=== PATIENT | male | born 1935 | race Hispanic/Latino ===

== ENCOUNTER 2016-12-05 10:25 | Inpatient (IN) | payer MEDICARE ==
[2016-12-05] MEDS ORDERED: MORPHINE IV ONE (11:50)
[2016-12-05] MEDS ORDERED: ZOFRAN IV ONE (11:50)
[2016-12-05] MEDS ORDERED: NACL 0.9% 250ML 250 ML IV ONE (11:51)
--- NOTE | 2016-12-05 11:52 | Emergency Department Report ---
<LOGAN ALBRECHT - Last Filed: 12/05/16 14:45> ED General Adult HPI - General Chief complaint: Abdominal Pain Stated complaint: ABD PAIN/DIARRHEA Time Seen by Provider: 12/05/16 11:35 Source: patient, EMS (ems notes not available at time of chart dictation), RN notes reviewed Mode of arrival: Stretcher Limitations: No Limitations - History of Present Illness Initial comments: Primary care Dr.: Alfie Pain Specialist: Dr Tyshawn Reed Past medical history: Spinal stenosis, hypertension, high cholesterol, chronic pain This is an 81-year-old male. He is previously unknown to me. He is brought to the hospital by EMS. The patient has a primary complaint of suprapubic abdominal pain, inability to void. Symptoms started last night. They're constant. Patient also reports feeling constipated, and reports intermittent diarrhea which is leaking out of his rectum. There is no extremity weakness. There is no extremity numbness. There is no saddle anesthesia. The patient reports chronic pain to the plantar aspect of his feet, which are not new, worsening or different. The patient's abdominal pain was partially resolved by placement of a Banda catheter which was done by myself using typical sterile technique. -: Gradual Location: abdomen, pelvis Quality: aching Consistency: constant Improves with: other (placement of banda) Worsens with: other (palpation) Associated Symptoms: malaise, other (constipation, urinary retention, diarrhea) - Related Data Home Medications Medication Instructions Recorded Confirmed Last Taken Pregabalin [Lyrica] 50 mg PO DAILY 12/05/16 12/05/16 Unknown amLODIPine [Norvasc] 5 mg PO DAILY 12/05/16 12/05/16 Unknown Previous Rx's Medication Instructions Recorded Last Taken Type Ondansetron [Zofran Odt] 4 mg PO QID PRN #20 tab.rapdis 12/05/16 Unknown Rx Polyethylene Glycol 3350 [Miralax 17 gm PO QDAY #30 packet 12/05/16 Unknown Rx 3350] Allergies Allergy/AdvReac Type Severity Reaction Status Date / Time No Known Allergies Allergy Unverified 12/05/16 11:17 ED Review of Systems ROS: Stated complaint: ABD PAIN/DIARRHEA Other details as noted in HPI Constitutional: denies: malaise Eyes: denies: vision change ENT: denies: epistaxis Respiratory: denies: cough Cardiovascular: denies: chest pain Gastrointestinal: abdominal pain, diarrhea, constipation Genitourinary: other (retention) Musculoskeletal: back pain (chronic) Skin: denies: lesions Neurological: denies: numbness, paresthesias Psychiatric: anxiety ED Past Medical Hx - Past Medical History Previous Medical History?: Yes Hx Hypertension: Yes Additional medical history: high cholesterol. spinal stenosis - Social History Smoking Status: Former Smoker Substance Use Type: None - Medications Home Medications: Home Medications Medication Instructions Recorded Confirmed Last Taken Type Ondansetron [Zofran Odt] 4 mg PO QID PRN #20 tab.rapdis 12/05/16 Unknown Rx Polyethylene Glycol 3350 [Miralax 17 gm PO QDAY #30 packet 12/05/16 Unknown Rx 3350] Pregabalin [Lyrica] 50 mg PO DAILY 12/05/16 12/05/16 Unknown History amLODIPine [Norvasc] 5 mg PO DAILY 12/05/16 12/05/16 Unknown History ED Physical Exam - General Limitations: Physical Limitation General appearance: alert, in distress - Head Head exam: Present: atraumatic, normocephalic - Eye Eye exam: Present: normal appearance, EOMI. Absent: nystagmus - ENT ENT exam: Present: normal exam, normal orophraynx, mucous membranes moist, normal external ear exam - Neck Neck exam: Present: normal inspection, full ROM. Absent: tenderness, meningismus - Respiratory Respiratory exam: Present: normal lung sounds bilaterally. Absent: respiratory distress, wheezes, rales, rhonchi, stridor, decreased breath sounds - Cardiovascular Cardiovascular Exam: Present: normal rhythm, bradycardia, normal heart sounds. Absent: systolic murmur, diastolic murmur, rubs, gallop - GI/Abdominal GI/Abdominal exam: Present: soft, tenderness, normal bowel sounds, other ( suprapubic abdominal tenderness. There is no rebound, guarding or peritoneal signs). Absent: guarding, rebound, rigid, pulsatile mass - Rectal Rectal exam: Present: normal inspection, normal rectal tone, heme (+) stool, fecal impaction, other (there is brown stool noted in the rectal vault. There is no gross blood. Trace guaiac positive. Large fecal load noted in the rectal vault. Good rectal tone. saddle sensation intact.) - exam: Present: normal inspection. Absent: testicular tenderness External exam: Present: normal external exam - Extremities Exam Extremities exam: Present: normal inspection, full ROM, normal capillary refill , pedal edema. Absent: calf tenderness, other - Back Exam Back exam: Present: normal inspection, full ROM. Absent: tenderness, CVA tenderness (R), CVA tenderness (L), muscle spasm, paraspinal tenderness - Neurological Exam Neurological exam: Present: alert, oriented X3, other (Extraocular movements intact. Tongue midline. No facial droop. Facial sensation intact to light touch in the V1, V2, V3 distribution bilaterally. 5 and 5 strength in 4 extremities.. Sensation is intact to light touch in 4 extremities.). Absent: motor sensory deficit - Psychiatric Psychiatric exam: Present: anxious - Skin Skin exam: Present: warm, dry, intact, normal color. Absent: rash ED Course Vital Signs 12/05/16 12/05/16 12/05/16 11:13 12:30 12:56 Temperature 99 F Pulse Rate 55 L 83 Respiratory 18 16 16 Rate Blood Pressure 143/79 Blood Pressure 139/55 [Right] O2 Sat by Pulse 100 96 Oximetry 12/05/16 12/05/16 12/05/16 13:26 14:06 16:00 Temperature Pulse Rate 61 56 L Respiratory 16 16 16 Rate Blood Pressure Blood Pressure 144/58 134/62 [Right] O2 Sat by Pulse 96 98 Oximetry 12/05/16 18:04 Temperature Pulse Rate 74 Respiratory 16 Rate Blood Pressure Blood Pressure 162/62 [Right] O2 Sat by Pulse 98 Oximetry - Reevaluation(s) Reevaluation #1: 12/05/16 14:38 differential diagnosis: Urinary retention, constipation, constipation secondary to chronic narcotic use, fecal impaction assessment and plan: 81-year-old male here with urinary retention, constipation. Patient has a history of chronic narcotic use. Using appropriate sterile technique, A Banda catheter is placed by myself with immediate release of 900 mL of clear yellow urine. Patient reported almost complete relief of pain. Laboratory studies were unremarkable, a CT scan of the abdomen and pelvis demonstrated moderate fecal retention in the colon and rectum. The patient is given a fleets enema. The patient is tolerating liquid feeds. He has appropriate rectal tone, and sensation, strength are intact in the bilateral upper and lower extremities. Patient has trace guaiac-positive stool, low-grade temperature of 99.9, guaiac positive stool most likely secondary to constipation and epithelial sloughing. There is no gross blood on rectal examination, and on reexamination the patient appears to be quite comfortable. The patient can follow up with outpatient gastroenterology for his guaiac positive stool, he can follow up with urology for his urinary retention and indwelling Banda catheter, and he is instructed to follow-up with his pain specialist to taper off/discontinue his narcotic therapy. He will be started empirically on MiraLAX. At this point in time, I see no indication for medical admission to the hospital. The patient will be discharged. Return precautions are reviewed. 12/05/16 14:45 - Procedure Description Procedures done: Using typical sterile technique, the penis is prepped with standard Betadine using sterile gloves. A 16 Setswana Banda catheter is placed by myself with 1 attempt with no difficulty. Immediate release of clear yellow urine is obtained. 900 mL of urine have drained so far. The patient tolerated the procedure well. ED Medical Decision Making - Lab Data Result diagrams: 12/05/16 12:28 12/05/16 12:28 Vital Signs 12/05/16 12/05/16 12/05/16 11:13 12:30 12:56 Temperature 99 F Pulse Rate 55 L 83 Respiratory 18 16 16 Rate Blood Pressure 143/79 Blood Pressure 139/55 [Right] O2 Sat by Pulse 100 96 Oximetry 12/05/16 14:06 Temperature Pulse Rate 61 Respiratory 16 Rate Blood Pressure Blood Pressure 144/58 [Right] O2 Sat by Pulse 96 Oximetry Lab Results 12/05/16 12/05/16 12/05/16 Range/Units 12:28 12:28 13:09 WBC 8.4 (4.5-11.0) K/mm3 RBC 5.26 H (3.65-5.03) M/mm3 Hgb 15.8 H (11.8-15.2) gm/dl Hct 46.4 H (35.5-45.6) % MCV 88 (84-94) fl MCH 30 (28-32) pg MCHC 34 (32-34) % RDW 13.8 (13.2-15.2) % Plt Count 180 (140-440) K/mm3 Sodium 135 L (137-145) mmol/L Potassium 4.3 (3.6-5.0) mmol/L Chloride 97.3 L (98-107) mmol/L Carbon Dioxide 21 L (22-30) mmol/L Anion Gap 21 mmol/L BUN 10 (9-20) mg/dL Creatinine 0.9 (0.8-1.5) mg/dL Estimated GFR > 60 ml/min BUN/Creatinine Ratio 11.11 % Glucose 102 H (75-100) mg/dL Calcium 9.5 (8.4-10.2) mg/dL Magnesium 1.8 (1.7-2.3) mg/dL Urine Color Yellow (Yellow) Urine Turbidity Clear (Clear) Urine pH 8.0 H (5.0-7.0) Ur Specific Andrews 1.012 (1.003-1.030) Urine Protein <15 mg/dl (Negative) mg/dL Urine Glucose (UA) Neg (Negative) mg/dL Urine Ketones Tr (Negative) mg/dL Urine Blood Sm (Negative) Urine Nitrite Neg (Negative) Urine Bilirubin Neg (Negative) Urine Urobilinogen 2.0 (<2.0) mg/dL Ur Leukocyte Esterase Neg (Negative) Urine WBC (Auto) 1.0 (0.0-6.0) /HPF Urine RBC (Auto) 6.0 (0.0-6.0) /HPF - Radiology Data Radiology results: report reviewed, image reviewed Noncontrast CT scan of the abdomen and pelvis demonstrates no acute process, bilateral nephrolithiasis is noted, nonobstructing. Mild fecal retention is noted. There is no evidence of bowel obstruction or focal inflammation. Critical care attestation.: If time is entered above; I have spent that time in minutes in the direct care of this critically ill patient, excluding procedure time. ED Disposition Clinical Impression: Abdominal pain Disposition: OP ADMITTED IP TO THIS HOSP Is pt being admited?: No Does the pt Need Aspirin: No Condition: Fair Instructions: Constipation (ED), Urinary Retention in Men (ED), High Fiber Diet (ED) Additional Instructions: Banda catheter should remain in place. Follow up with your primary care doctor or urology specialist within the next 5-7 days for outpatient trial of void. Do not attempt to remove the Banda catheter on your own, this could severely damaged the bladder, prostate, urethra. Laboratory studies were unremarkable. Laboratory studies did indicate trace blood in the stool. This is most likely secondary to constipation. Follow up for this with either your primary care doctor or gastroenterology specialist. Dr. Lynn is a local gastroenterology specialist. Not following up in a timely fashion with either of the recommended physicians for the blood in the stool may result in an undiagnosed tumor/cancer/malignancy. I recommend that you follow up with your pain specialist within the next week to 10 days to have an evaluation for a tapering/discontinuation of the narcotic medications which you are taking. Most likely, the narcotic medications made you constipated which in turn caused urinary retention. Take the constipation medication as directed. Drink 6-8 cups of water a day, eat plenty of fiber, fruits, vegetables. Take the MiraLAX as directed. Dr. Martinez is a local urology specialist. Return to the ER right away with new pain, worsened pain, migration of pain, fevers or chills, intractable nausea or vomiting, inability to tolerate liquid feeds. Prescriptions: Ondansetron [Zofran Odt] 4 mg PO QID PRN #20 tab.rapdis PRN Reason: Nausea Polyethylene Glycol 3350 [Miralax 3350] 17 gm PO QDAY #30 packet Referrals: ARNALDO BAKER MD [Primary Care Provider] - 3-5 Days ZAY LINDSAY MD [Staff Physician] - 3-5 Days PASHA REED MD [Staff Physician] - 3-5 Days MAYRA LYNN MD [Staff Physician] - 3-5 Days GURINDER COLLINS MD [Staff Physician] - 3-5 Days <KENAN DONALDSON. - Last Filed: 12/05/16 18:56> ED Medical Decision Making - Lab Data Result diagrams: 12/05/16 12:28 12/05/16 12:28 - Medical Decision Making I was approach at 1800 by the nurse that the patient is unable to go home, still complaining of abdominal pain, attempts for manual decompression were unsuccessful. Discuss case with Dr. Santiago and agree with plan for admission for intractable abdominal pain. ED Disposition Is pt being admited?: Yes Time of Disposition: 18:56
--- NOTE | 2016-12-05 12:40 | Cat Scan Report ---
CT OF THE ABDOMEN AND PELVIS WITHOUT CONTRAST HISTORY: Abdominal pain. TECHNIQUE: Helical CT without contrast. Sagittal and coronal reformatted images. FINDINGS: Scattered punctate bilateral renal stones are identified. No ureteral stones or hydronephrosis. The bladder is empty and contains a Vergara catheter. No obvious abnormality. There is moderate fecal retention in the colon and rectum. No evidence for bowel obstruction or focal inflammation. The appendix is not confidently identified. The liver, biliary system, pancreas, spleen, and adrenal glands are unremarkable. There are moderate diffuse aortic calcifications but no aneurysm. No ascites, bulky adenopathy or inflammatory changes. The lung bases are clear. Normal heart size. No suspicious bony lesion. Severe thoracolumbar spondylosis is noted. IMPRESSION: No acute process. Bilateral nephrolithiasis, nonobstructing. Mild fecal retention. Advanced thoracolumbar spondylosis.
[2016-12-05 13:02] LABS: Anion Gap 21 mmol/L; BUN/Creatinine Ratio 11.11; Blood Urea Nitrogen 10 mg/dL (9-20); Calcium 9.5 mg/dL (8.4-10.2); Carbon Dioxide 21 mmol/L (22-30); Chloride 97.3 mmol/L (98-107); Glucose 102 mg/dL (75-100); Magnesium 1.8 mg/dL (1.7-2.3); Potassium 4.3 mmol/L (3.6-5.0); Sodium 135 mmol/L (137-145)
[2016-12-05 13:19] LABS: Hematocrit 46.4 % (35.5-45.6); Hemoglobin 15.8 gm/dl (11.8-15.2); Mean Corpuscular HGB Conc 34 % (32-34); Mean Corpuscular Hemoglobin 30 pg (28-32); Mean Corpuscular Volume 88 fl (84-94); Red Blood Count 5.26 M/mm3 (3.65-5.03); Red Cell Distribution Width 13.8 % (13.2-15.2); White Blood Count 8.4 K/mm3 (4.5-11.0)
[2016-12-05 13:22] LABS: Platelet Count 180 K/mm3 (140-440)
[2016-12-05 13:33] LABS: Bilirubin,Urine NEG (Negative); Blood,Urine SM (Negative); Ketones,Urine TR mg/dL (Negative); Leukocyte Esterase,Urine NEG (Negative); Nitrite,Urine NEG (Negative); Protein,Urine <15 mg/dL mg/dL (Negative)
[2016-12-05] MEDS ORDERED: FLEET PR ONE ×2 (14:04→14:13)
--- NOTE | 2016-12-05 19:19 | Admit Criteria Form ---
Admission Criteria Documentation: ABDOMINAL PAIN Clinical Indications for Admission to Inpatient Care (Place 'X' for any and all applicable criteria): Admission is indicated for ANY ONE of the following(1)(2)(3)(4)(5): [X ]I. Inpatient admission required rather than observation care (Also use Abdominal Pain: Observation Care, as appropriate) because of ANY ONE of the following: [ ]a) Severe pain requiring acute inpatient management [ ]b) Identification of etiology/finding that requires inpatient care (eg, aortic dissection, free air) [ ]c) Absent bowel sounds with complete ileus(6) [ ]d) Suspected toxic megacolon [ ]e) Severe electrolyte abnormalities requiring inpatient care [ ]f) High fever or infection requiring inpatient admission as indicated by ANY ONE of following(7)(8): [ ] i) Appropriate outpatient or observational care antimicrobial treatment unavailable, not effective, or not feasible [ ] ii) Documented bacteremia [ ] iii) Temperature > 104.9 degrees F (oral) [ ] iv) T >103.1 F (oral) or < 96.8 F(rectal) that does not respond to all emergency treatment measures [ ]g) Signs of intestinal obstruction [B] [ ]h) Hemodynamic instability [ ]i) IV fluid to replace significant ongoing losses (greater than 3 L/m2 per day) (12)(13) [ ]j) Percutaneous or open drainage (eg, abscess, biliary tract ) procedures [ ]k) Parenteral nutrition regimen that must be implemented on inpatient basis [X ]l) Other condition,treatment or monitoring requiring inpatient admission. [ ]II. Peritoneal signs present [ ]III. Surgery needed that cannot be performed on an ambulatory basis. [ ]IV. Evaluation requires patient to not eat or drink for extended period ( eg, more than 24 hours). [ ]V. Contraindications and/or Inappropriate clinical situations for Observational Care in patients with abdominal pain, when ANY ONE of the following is required: [ ]a) Thorough evaluation is required to prevent catastrophic events due to delays in diagnosing (e.g.Mesenteric ischemia) 1,3 [ ]b) Patient with severe pathology or with chronic symptoms unlikely to improve in the ED stay (3) [X ]. General contraindications and/or Inappropriate clinical situations for Observational Care in patients with abdominal pain, when ANY ONE of the following is required: [X ]a) Prediction of prolongation of LOS based on ANY ONE of the following may be considered as a contraindication for observational care 2, 3, 4, 5, 6, 7, 8, 9, 10, 11 [ X]i) Age > 65 yrs. [ ]ii) Patient arriving by ambulance [ ]iii) Patient with high acuity [ ]iv) Patient requiring vital sign monitoring [ ]v) Patient on IV medication [ ]b) Systolic blood pressures 180mmHg 3,12 [ ]c) Patient with altered mental status including delirium and other alteration of consciousness, (3) [ ]d) Patient whose discharge disposition will be to a intermediate home or rehabilitation home should not be managed in Emergency Department Observation Unit. CMS rule requires 3 days hospital stay before such placement.3,13 [ ]e) Patient with failure to thrive due to broad array of etiologies 3,16,17 [ ]f) Inability to ambulate 3,14 Extended stay beyond goal length of stay may be needed for(2)(3): [ ]a) Persistent abdominal pain with suspected intra-abdominal process [ ]b) Diagnosed condition requiring continued stay (e.g., pancreatitis, complicated diverticulitis) [ ]c) Surgery (e.g., colectomy) The original [email or web address] content created by [facility] has been revised. The portions of the content which have been revised are identified through the use of italic text or in bold, and [facility] has neither reviewed nor approved the modified material.All other unmodified content is copyright [facility]. Please see references footnoted in the original [facility] edition 2016 Admission Criteria Met: Yes
--- NOTE | 2016-12-05 20:33 | Event Note ---
Date: 12/05/16
[2016-12-05] MEDS ORDERED: DULCOLAX PR PRN (20:35)
[2016-12-05] MEDS ORDERED: MILK OF MAGNESIA PO PRN (20:35)
[2016-12-05] MEDS ORDERED: CEPHULAC PR SCH (21:00)
[2016-12-05] MEDS ORDERED: LOVENOX SUB-Q ONE (23:17)
[2016-12-05] MEDS ORDERED: NORVASC ONE (23:18)
[2016-12-05] MEDS: NORVASC PO SCH (23:38)
[2016-12-05] MEDS: LOVENOX SUB-Q SCH (23:39)
[2016-12-06] MEDS: CEPHULAC PO SCH ×2 (00:18→09:57)
[2016-12-06] MEDS: TORADOL IV PRN ×3 (00:18→20:49)
[2016-12-06] MEDS: LYRICA PO SCH ×2 (00:26→09:56)
[2016-12-06] MEDS: D5NS 1,000 ML IV SCH ×2 (00:31→12:24)
[2016-12-06 02:51] LABS: Basophils % (Auto) 0.3 % (0.0-1.8); Eosinophils % (Auto) 0.3 % (0.0-4.3); Hematocrit 45.2 % (35.5-45.6); Hemoglobin 15.1 gm/dl (11.8-15.2); Mean Corpuscular HGB Conc 33 % (32-34); Mean Corpuscular Hemoglobin 30 pg (28-32); Mean Corpuscular Volume 89 fl (84-94); Platelet Count 162 K/mm3 (140-440); Red Blood Count 5.08 M/mm3 (3.65-5.03); Red Cell Distribution Width 13.6 % (13.2-15.2); White Blood Count 10.3 K/mm3 (4.5-11.0)
[2016-12-06 03:11] LABS: Alanine Aminotransferase 6 units/L (7-56); Albumin 3.6 g/dL (3.9-5); Albumin/Globulin Ratio 1.3 %; Alkaline Phosphatase 54 units/L (35-129); Anion Gap 18 mmol/L; BUN/Creatinine Ratio 12.22; Bilirubin,Total 1.8 mg/dL (0.1-1.2); Blood Urea Nitrogen 11 mg/dL (9-20); Calcium 8.3 mg/dL (8.4-10.2); Carbon Dioxide 22 mmol/L (22-30); Glucose 146 mg/dL (75-100); Potassium 4.3 mmol/L (3.6-5.0); Sodium 133 mmol/L (137-145); Total Protein 6.4 g/dL (6.3-8.2)
--- NOTE | 2016-12-06 03:47 | History and Physical Report ---
CHIEF COMPLAINT: Abdominal pain. HISTORY OF PRESENT ILLNESS: This 81-year-old male brought in for acute abdominal pain since last night. Pain is about 8 on a scale of 1-10, constant, more periumbilical. Also, the patient has severe constipation and intermittent loose stools, secondary to leakage. No weakness. No extremity numbness. Saddle anesthesia. Chronic pain in both feet secondary to peripheral neuropathy. The patient follows with pain specialist, Dr. Ac and primary care is Dr. Avalos. CURRENT MEDICATIONS: Amlodipine and pregabalin. PAST MEDICAL HISTORY: Significant for hypertension, high cholesterol, spinal stenosis with severe pain in both the feet. SOCIAL HISTORY: Former smoker, no substance abuse. PAST SURGICAL HISTORY: Unknown. FAMILY HISTORY: Significant for hypertension. CURRENT MEDICATIONS: Norvasc 5 mg daily, Lyrica 50 mg daily, MiraLax 17 g p.o. daily, and Zofran 4 mg p.o. q.i.d. p.r.n. REVIEW OF SYSTEMS: CONSTITUTIONAL: No fever, no chills. No weight loss, no weight gain. HEENT: Unremarkable. No sore throat. No postnasal drip. CARDIOVASCULAR AND RESPIRATORY SYSTEM: No shortness of breath, no chest pain, no palpitations. GASTROINTESTINAL: Severe abdominal pain, constipation, and periumbilical pain present. Pain is about 8 on a scale of 1-10. Denies yellow vomitus. Occasional leakage of feces secondary to constipation present. GENITOURINARY SYSTEM: No dysuria, no flank pain. MUSCULOSKELETAL SYSTEM: No joint pains. HOSPITAL INSURANCE REPRESENTATIVE: No syncope, no seizures. No focal deficits. SKIN: No rashes. HEMATOLOGIC/LYMPHATIC: No bruising, etc. PSYCHIATRIC: No depression. 14-point review of system were done. PHYSICAL EXAMINATION: VITAL SIGNS: On examination, elderly male in slight distress secondary to pain. Blood pressure is 170/59 and temperature is 98, pulse is 70, respirations 16, and sats 98%. HEENT: Unremarkable. Pupils equal and reactive. NECK: Supple, no lymphadenopathy, no thyromegaly. LUNGS: Clear to auscultation and percussion. Good air entry. CARDIOVASCULAR: S1, S2 heard. No gallop, no murmur, no rub. Apical impulse in left fifth intercostal space in midclavicular line. ABDOMEN: Tenderness present in the periumbilical region. RECTAL: Exam shows fecal impaction. SKIN: Normal. CENTRAL NERVOUS SYSTEM: Alert and oriented x4. Nonfocal exam. LABORATORY DATA: White count was 8400, H and H is 15.8 and 46.4, platelet count is 180,000. Sodium is 135, potassium is 4.3, chloride is 97.3, bicarbonate is 21, BUN and creatinine is 10 and 0.9, glucose is 102, calcium is 9.5, magnesium is 1.8. Urine shows pH of 8.0, urine specific gravity 1.012. Abdominal CAT scan shows mild fecal retention. No cervical or lumbar spondylosis. ED COURSE: Multiple attempts were done to relieve the constipation. The patient has severe pain and was skeptical about going home. The patient was discharged by , but because of the nursing concern and the second ER physician's concerns, the patient to be admitted for acute abdominal pain and severe fecal impaction. ASSESSMENT AND PLAN: 1. Acute abdominal pain secondary to fecal impaction. The patient had enemas and Fleet enema x2 with minimal fecal retention. Soapsuds enema was also administered with no relief. Digital extraction was performed. The patient; however, continues to moan in pain and says that he could not go home like this. Hence decided to admit the patient for further administration of lactulose p.o. versus enema if there are no results to give Gastrografin enema. Gastrografin enema not ordered at this point. 2. Hypertension, continue amlodipine. 3. Chronic pain, the patient started on IV Toradol, no narcotics initiated because of the constipation. 4. Deep venous thrombosis prophylaxis, Lovenox 40 mg subcutaneous daily. JOB# [id number] KEM/LAYTON
[2016-12-06] MEDS: ZOFRAN IV PRN ×2 (08:06→17:11)
[2016-12-06] MEDS: NORVASC PO SCH (09:55)
[2016-12-06] MEDS: TYLENOL PO PRN (12:45)
[2016-12-06] MEDS: FLOMAX PO SCH (16:08)
--- NOTE | 2016-12-06 17:30 | Progress Note ---
Assessment and Plan Assessment and plan: Patient's an 81-year-old male with history of severe spinal stenosis, hypertension, high cholesterol, chronic pain secondary to spinal stenosis who presented to the hospital complaining of suprapubic abdominal pain and inability to void. He required a Vergara catheter insertion. Was also found to be severely constipated for which he received lactulose. No saddle anesthesia was noted no lower extremity numbness was felt. Patient did have bowel movement yesterday with Vergara catheter subsequently discontinued this morning still awaiting for patient to void. 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 Vergara catheter was discontinued this morning awaiting to see if patient will void on his own. No other adverse events reported by nursing staff Hospitalist Physical - Physical exam Narrative exam: VITAL SIGNS: Reviewed. GENERAL: The patient appeared well nourished and normally developed. Vital signs as documented. HEAD: No signs of head trauma. EYES: Pupils are equal. Extraocular motions intact. EARS: Hearing grossly intact. MOUTH: Oropharynx is normal. NECK: No adenopathy, no JVD. CHEST: Chest with clear breath sounds bilaterally. No wheezes, rales, or rhonchi. CARDIAC: Regular rate and rhythm. S1 and S2, without murmurs, gallops, or rubs. VASCULAR: No Edema. Peripheral pulses normal and equal in all extremities. ABDOMEN: Soft, without detectable tenderness. No sign of distention. No rebound or guarding, and no masses palpated. Bowel Sounds normal. MUSCULOSKELETAL: Good range of motion of all major joints. Extremities without clubbing, cyanosis or edema. NEUROLOGIC EXAM: Alert and oriented x 3. No focal sensory or strength deficits. Speech normal. Follows commands. PSYCHIATRIC: Mood normal. SKIN: No rash or lesions. - Constitutional Vitals: Temp Pulse Resp BP Pulse Ox 98.6 F 55 L 18 127/55 100 12/06/16 08:00 12/06/16 09:55 12/06/16 08:00 12/06/16 09:55 12/06/16 08:00 Results - Labs CBC & Chem 7: 12/06/16 02:25 12/06/16 02:25 Labs: Laboratory Last Values WBC 10.3 K/mm3 (4.5-11.0) 12/06/16 02:25 RBC 5.08 M/mm3 (3.65-5.03) H 12/06/16 02:25 Hgb 15.1 gm/dl (11.8-15.2) 12/06/16 02:25 Hct 45.2 % (35.5-45.6) 12/06/16 02:25 MCV 89 fl (84-94) 12/06/16 02:25 MCH 30 pg (28-32) 12/06/16 02:25 MCHC 33 % (32-34) 12/06/16 02:25 RDW 13.6 % (13.2-15.2) 12/06/16 02:25 Plt Count 162 K/mm3 (140-440) 12/06/16 02:25 Lymph % (Auto) 9.6 % (13.4-35.0) L 12/06/16 02:25 [place] % (Auto) 9.3 % (0.0-7.3) H 12/06/16 02:25 Eos % (Auto) 0.3 % (0.0-4.3) 12/06/16 02:25 Baso % (Auto) 0.3 % (0.0-1.8) 12/06/16 02:25 Lymph # 1.0 K/mm3 (1.2-5.4) L 12/06/16 02:25 [place] # 1.0 K/mm3 (0.0-0.8) H 12/06/16 02:25 Eos # 0.0 K/mm3 (0.0-0.4) 12/06/16 02:25 Baso # 0.0 K/mm3 (0.0-0.1) 12/06/16 02:25 Seg Neutrophils % 80.5 % (40.0-70.0) H 12/06/16 02:25 Seg Neutrophils # 8.3 K/mm3 (1.8-7.7) H 12/06/16 02:25 Sodium 133 mmol/L (137-145) L 12/06/16 02:25 Potassium 4.3 mmol/L (3.6-5.0) 12/06/16 02:25 Chloride 97.0 mmol/L (98-107) L 12/06/16 02:25 Carbon Dioxide 22 mmol/L (22-30) 12/06/16 02:25 Anion Gap 18 mmol/L 12/06/16 02:25 BUN 11 mg/dL (9-20) 12/06/16 02:25 Creatinine 0.9 mg/dL (0.8-1.5) 12/06/16 02:25 Estimated GFR > 60 ml/min 12/06/16 02:25 BUN/Creatinine Ratio 12.22 % 12/06/16 02:25 Glucose 146 mg/dL (75-100) H 12/06/16 02:25 Calcium 8.3 mg/dL (8.4-10.2) L 12/06/16 02:25 Magnesium 1.8 mg/dL (1.7-2.3) 12/05/16 12:28 Total Bilirubin 1.8 mg/dL (0.1-1.2) H 12/06/16 02:25 AST 20 units/L (5-40) 12/06/16 02:25 ALT 6 units/L (7-56) L 12/06/16 02:25 Alkaline Phosphatase 54 units/L (35-129) 12/06/16 02:25 Total Protein 6.4 g/dL (6.3-8.2) 12/06/16 02:25 Albumin 3.6 g/dL (3.9-5) L 12/06/16 02:25 Albumin/Globulin Ratio 1.3 % 12/06/16 02:25 Urine Color Yellow (Yellow) 12/05/16 13:09 Urine Turbidity Clear (Clear) 12/05/16 13:09 Urine pH 8.0 (5.0-7.0) H 12/05/16 13:09 Ur Specific [place] 1.012 (1.003-1.030) 12/05/16 13:09 Urine Protein <15 mg/dl mg/dL (Negative) 12/05/16 13:09 Urine Glucose (UA) Neg mg/dL (Negative) 12/05/16 13:09 Urine Ketones Tr mg/dL (Negative) 12/05/16 13:09 Urine Blood Sm (Negative) 12/05/16 13:09 Urine Nitrite Neg (Negative) 12/05/16 13:09 Urine Bilirubin Neg (Negative) 12/05/16 13:09 Urine Urobilinogen 2.0 mg/dL (<2.0) 12/05/16 13:09 Ur Leukocyte Esterase Neg (Negative) 12/05/16 13:09 Urine WBC (Auto) 1.0 /HPF (0.0-6.0) 12/05/16 13:09 Urine RBC (Auto) 6.0 /HPF (0.0-6.0) 12/05/16 13:09 - Imaging and Cardiology CT scan - abdomen: image reviewed (nonobstructive nephrolithiasis, no hydronephrosis)
[2016-12-06] MEDS: LOVENOX SUB-Q SCH (22:45)
[2016-12-07] MEDS: TORADOL IV PRN ×2 (06:13→17:29)
[2016-12-07] MEDS: D5NS 1,000 ML IV SCH ×2 (06:45→09:57)
[2016-12-07] MEDS: ZOFRAN IV PRN (07:51)
[2016-12-07] MEDS: NORVASC PO SCH (09:53)
[2016-12-07] MEDS: FLOMAX PO SCH (09:53)
[2016-12-07] MEDS: LYRICA PO SCH (09:54)
[2016-12-07] MEDS ORDERED: DULCOLAX PR ONE (10:00)
[2016-12-07] MEDS: CEPHULAC PO SCH (10:04)
--- NOTE | 2016-12-07 14:43 | Progress Note ---
Assessment and Plan Assessment and plan: Patient is a 81-year-old man with a history of severe spinal stenosis, hypertension, high cholesterol and chronic pain secondary to spinal stenosis who presented to the hospital complaining of suprapubic abdominal pain and inability to void. He required a Banda catheter insertion. He was also found to be severely constipated for which he received lactulose and digital dis- impaction in ED. No saddle anesthesia was noted and no lower extremity numbness was felt. Patient did have bowel movement yesterday with Banda catheter subsequently discontinued this morning still awaiting for patient to void. He was unable to void and banda catheter was re-inserted. He needs outpatient urology evaluation of his prostate causing both constipation and urinary retention. He was started on Flomax. 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 Plan * Supportive care * Start patient on Flomax * Bladder ultrasound, if no void and will need to reinsert Banda catheter back and obtain urology evaluation * Continue stool softeners * Judicious use of pain control * Physical therapy evaluate and treat * Anticipate discharge soon * Continue home medications New: still with severe constipation, ordered soap suds enema, dulcolax suppository, sitz bath and daily miralax Hospitalist Physical - Constitutional Vitals: Temp Pulse Resp BP Pulse Ox 98.8 F 56 L 18 145/89 95 12/07/16 01:27 12/07/16 09:53 12/07/16 01:27 12/07/16 09:53 12/07/16 01:27 Results - Labs CBC & Chem 7: 12/06/16 02:25 12/06/16 02:25 Labs: Laboratory Last Values WBC 10.3 K/mm3 (4.5-11.0) 12/06/16 02:25 RBC 5.08 M/mm3 (3.65-5.03) H 12/06/16 02:25 Hgb 15.1 gm/dl (11.8-15.2) 12/06/16 02:25 Hct 45.2 % (35.5-45.6) 12/06/16 02:25 MCV 89 fl (84-94) 12/06/16 02:25 MCH 30 pg (28-32) 12/06/16 02:25 MCHC 33 % (32-34) 12/06/16 02:25 RDW 13.6 % (13.2-15.2) 12/06/16 02:25 Plt Count 162 K/mm3 (140-440) 12/06/16 02:25 Lymph % (Auto) 9.6 % (13.4-35.0) L 12/06/16 02:25 [place] % (Auto) 9.3 % (0.0-7.3) H 12/06/16 02:25 Eos % (Auto) 0.3 % (0.0-4.3) 12/06/16 02:25 Baso % (Auto) 0.3 % (0.0-1.8) 12/06/16 02:25 Lymph # 1.0 K/mm3 (1.2-5.4) L 12/06/16 02:25 [place] # 1.0 K/mm3 (0.0-0.8) H 12/06/16 02:25 Eos # 0.0 K/mm3 (0.0-0.4) 12/06/16 02:25 Baso # 0.0 K/mm3 (0.0-0.1) 12/06/16 02:25 Seg Neutrophils % 80.5 % (40.0-70.0) H 12/06/16 02:25 Seg Neutrophils # 8.3 K/mm3 (1.8-7.7) H 12/06/16 02:25 Sodium 133 mmol/L (137-145) L 12/06/16 02:25 Potassium 4.3 mmol/L (3.6-5.0) 12/06/16 02:25 Chloride 97.0 mmol/L (98-107) L 12/06/16 02:25 Carbon Dioxide 22 mmol/L (22-30) 12/06/16 02:25 Anion Gap 18 mmol/L 12/06/16 02:25 BUN 11 mg/dL (9-20) 12/06/16 02:25 Creatinine 0.9 mg/dL (0.8-1.5) 12/06/16 02:25 Estimated GFR > 60 ml/min 12/06/16 02:25 BUN/Creatinine Ratio 12.22 % 12/06/16 02:25 Glucose 146 mg/dL (75-100) H 12/06/16 02:25 Calcium 8.3 mg/dL (8.4-10.2) L 12/06/16 02:25 Magnesium 1.8 mg/dL (1.7-2.3) 12/05/16 12:28 Total Bilirubin 1.8 mg/dL (0.1-1.2) H 12/06/16 02:25 AST 20 units/L (5-40) 12/06/16 02:25 ALT 6 units/L (7-56) L 12/06/16 02:25 Alkaline Phosphatase 54 units/L (35-129) 12/06/16 02:25 Total Protein 6.4 g/dL (6.3-8.2) 12/06/16 02:25 Albumin 3.6 g/dL (3.9-5) L 12/06/16 02:25 Albumin/Globulin Ratio 1.3 % 12/06/16 02:25 Urine Color Yellow (Yellow) 12/05/16 13:09 Urine Turbidity Clear (Clear) 12/05/16 13:09 Urine pH 8.0 (5.0-7.0) H 12/05/16 13:09 Ur Specific [place] 1.012 (1.003-1.030) 12/05/16 13:09 Urine Protein <15 mg/dl mg/dL (Negative) 12/05/16 13:09 Urine Glucose (UA) Neg mg/dL (Negative) 12/05/16 13:09 Urine Ketones Tr mg/dL (Negative) 12/05/16 13:09 Urine Blood Sm (Negative) 12/05/16 13:09 Urine Nitrite Neg (Negative) 12/05/16 13:09 Urine Bilirubin Neg (Negative) 12/05/16 13:09 Urine Urobilinogen 2.0 mg/dL (<2.0) 12/05/16 13:09 Ur Leukocyte Esterase Neg (Negative) 12/05/16 13:09 Urine WBC (Auto) 1.0 /HPF (0.0-6.0) 12/05/16 13:09 Urine RBC (Auto) 6.0 /HPF (0.0-6.0) 12/05/16 13:09
--- NOTE | 2016-12-07 14:45 | Discharge Summary ---
Providers - Providers Date of Admission: 12/05/16 20:35 Date of discharge: 12/08/16 Attending physician: ARNALDO HINES 12/06/16 17:27 Physical Therapy Evaluation and Treat [CONS] Routine Comment: Reason For Exam: DEBILITY Primary care physician: ARNALDO BAKER Hospitalization Condition: Stable Hospital course: Patient is a 81-year-old man with a history of severe spinal stenosis, hypertension, high cholesterol and chronic pain secondary to spinal stenosis who presented to the hospital complaining of suprapubic abdominal pain and inability to void. He required a Banda catheter insertion. He was also found to be severely constipated for which he received lactulose and digital dis- impaction in ED. No saddle anesthesia was noted and no lower extremity numbness was felt. Patient did have bowel movement yesterday with Banda catheter subsequently discontinued this morning still awaiting for patient to void. He was unable to void and banda catheter was re-inserted. He needs outpatient urology evaluation of his prostate causing both constipation and urinary retention. He was started on Flomax. 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 Plan * Supportive care * Start patient on Flomax * Bladder ultrasound, if no void and will need to reinsert Banda catheter back and obtain urology evaluation * Continue stool softeners * Judicious use of pain control * Physical therapy evaluate and treat * Anticipate discharge soon * Continue home medications severe constipation, ordered soap suds enema, dulcolax suppository, sitz bath and daily miralax==>resolved and he felt much better Disposition: DISCHARGED TO HOME OR SELFCARE Time spent for discharge: 36 minutes Core Measure Documentation - Palliative Care Palliative Care/ Comfort Measures: Not Applicable - Core Measures Any of the following diagnoses?: none - VTE Discharge Requirements Deep Vein Thrombosis/Pulmonary Embolism Present on Admission: No Has pt received <5 days of overlap therapy or INR<2.0: No Anticoagulant overlap therapy prescribed at discharge: No Contraindication No Overlap Therapy order at DC: Not Indicated Exam - Physical Exam Narrative exam: GEN: WDWN, NAD, AWAKE, ALERT, ORIENTATED 3 HEENT: NCAT, PERRL, EOMI, OP CLEAR NECK: SUPPLE, NO THYROMEGALY, NO JVD, NO LAD CVS: RRR, NORMAL S1S2 LUNGS/CHEST: CTA B, NORMAL CHEST EXPANSION B, GOOD AIR ENTRY B ABD: SOFT, NON-TENDER, GBS, NO REBOUND OR GUARDING EXT/SKIN: NO SIGNIFICANT EDEMA OR RASH MSK: FROM X 4 EXTREMITIES NEURO: CN 2-12 GROSSLY INTACT, NO new FOCAL DEFICITS PSY: CALM - Constitutional Vitals: Temp Pulse Resp BP Pulse Ox 98.8 F 56 L 18 145/89 95 12/07/16 01:27 12/07/16 09:53 12/07/16 01:27 12/07/16 09:53 12/07/16 01:27 Plan Activity: fall precautions (no strenous activites until cleared by PCP. ) Diet: advance as tolerated Follow up with: GURINDER COLLINS MD [Staff Physician] - 3-5 Days MAYRA THAYER MD [Staff Physician] - 3-5 Days ARNALDO BAKER MD [Primary Care Provider] - 3-5 Days ZAY LINDSAY MD [Staff Physician] - 3-5 Days PASHA PALENCIA MD [Staff Physician] - 3-5 Days Prescriptions: Ondansetron [Zofran Odt] 4 mg PO QID PRN #20 tab.rapdis PRN Reason: Nausea Polyethylene Glycol 3350 [Miralax 3350] 17 gm PO QDAY #30 packet
[2016-12-07] MEDS ORDERED: MIRALAX 3350 PO SCH (15:00)
[2016-12-07] MEDS: HEMORRHOIDAL 0.25/3/85.5% PR PRN (17:34)
[2016-12-07] MEDS ORDERED: MIRALAX 3350 PO PRN (19:28)
[2016-12-07] MEDS: LOVENOX SUB-Q SCH (23:09)
[2016-12-08] MEDS: D5NS 1,000 ML IV SCH (05:26)
[2016-12-08] MEDS: TORADOL IV PRN (05:28)
[2016-12-08] MEDS: FLOMAX PO SCH (11:00)
[2016-12-08] MEDS: NORVASC PO SCH (11:00)
[2016-12-08] MEDS: LYRICA PO SCH (11:00)
[2016-12-08 12:16] VITALS: BP 128/52
[2016-12-08] MEDS: HEMORRHOIDAL 0.25/3/85.5% PR PRN (13:07)
[2016-12-08] MEDS: TYLENOL PO PRN (13:08)
== END 2016-12-08 14:05 | disposition home health service (06) | DRG 392 ==
LOC: ED 10:25 → CC2 20:35
PROVIDERS: ADMIT Internal Medicine; ATTEND Internal Medicine
DX: K59.00 Constipation, unspecified (principal); M48.00 Spinal stenosis, site unspecified; I10 Essential (primary) hypertension; R33.9 Retention of urine, unspecified; N20.0 Calculus of kidney; G89.4 Chronic pain syndrome; G62.9 Polyneuropathy, unspecified; Z79.899 Other long term (current) drug therapy; Z87.891 Personal history of nicotine dependence
CPT/HCPCS: 36415; 74176; 80048; 80053; 81001; 82271; 83735; 85025; 85027; 87086; 96361; 96374; 96375; J1650; J1885; J2270; J2405; J7042; J7050

== ENCOUNTER 2016-12-19 09:06 | Inpatient (IN) | payer MEDICARE ==
[2016-12-19] MEDS ORDERED: NACL 0.9% 1000 ML 1,000 ML ONE (10:04)
[2016-12-19] MEDS ORDERED: NACL 0.9% 1000 ML 1,000 ML IV ONE ×3 (10:07→11:39)
[2016-12-19 10:17] LABS: Anion Gap 17 mmol/L; Blood Urea Nitrogen 9 mg/dL (9-20); Calcium 7.9 mg/dL (8.4-10.2); Carbon Dioxide 21 mmol/L (22-30); Chloride 79.7 mmol/L (98-107); Glucose 116 mg/dL (75-100); Potassium 3.9 mmol/L (3.6-5.0)
[2016-12-19 10:26] LABS: Basophils % (Auto) 0.7 % (0.0-1.8); Eosinophils % (Auto) 3.8 % (0.0-4.3); Hematocrit 37.9 % (35.5-45.6); Hemoglobin 13.4 gm/dl (11.8-15.2); Mean Corpuscular HGB Conc 35 % (32-34); Mean Corpuscular Hemoglobin 30 pg (28-32); Mean Corpuscular Volume 86 fl (84-94); Platelet Count 226 K/mm3 (140-440); Red Blood Count 4.41 M/mm3 (3.65-5.03); Red Cell Distribution Width 12.7 % (13.2-15.2); White Blood Count 6.2 K/mm3 (4.5-11.0)
[2016-12-19 10:32] LABS: Sodium 114 mmol/L (137-145)
[2016-12-19 10:37] LABS: INR 1.05 (0.87-1.13)
[2016-12-19 10:45] LABS: Creatine Kinase MB 2.8 ng/mL (0.0-4.0)
[2016-12-19 10:46] LABS: Alanine Aminotransferase 13 units/L (7-56); Albumin 3.6 g/dL (3.9-5); Albumin/Globulin Ratio 1.7 %; Alkaline Phosphatase 69 units/L (35-129); Bilirubin,Total 0.4 mg/dL (0.1-1.2); Creatine Kinase 176 units/L (55-170); Magnesium 1.7 mg/dL (1.7-2.3); Total Protein 5.7 g/dL (6.3-8.2)
[2016-12-19 10:50] LABS: Bilirubin,Direct < 0.2 mg/dL (0-0.2)
--- NOTE | 2016-12-19 10:53 | XRay Report ---
Single view chest: History: Hypertension. Findings: Cardiomegaly. Trachea is midline. No consolidation, pneumothorax or pleural effusion. Impression: No acute cardiopulmonary findings.
--- NOTE | 2016-12-19 11:16 | Emergency Department Report ---
ED General Adult HPI - General Chief complaint: Recheck/Abnormal Lab/Rx Stated complaint: LOW SODIUM Time Seen by Provider: 12/19/16 09:57 Source: patient, family Mode of arrival: Wheelchair Limitations: Physical Limitation - History of Present Illness Initial comments: Patient states that he has felt very weak since his prior hospitalization. He was discharged on December 09 following treatment for fecal retention. He has opiate-induced constipation. He is on chronic opiates for spinal stenosis. He states he's felt weak since discharge. His last sodium was 133. He went to see his doctor Yariel who draw labs yesterday. The patient was called to come to the emergency department for a sodium of 114. He does not complain of abdominal pain. He states he has not been vomiting and does not feel nauseated. He is not confused or disoriented. He states that he has been taking laxatives since he left the hospital. -: week(s) Consistency: constant (weakness does not complain of pain) Improves with: none Worsens with: none Associated Symptoms: denies other symptoms, weakness Treatments Prior to Arrival: other - Related Data Home Medications Medication Instructions Recorded Confirmed Last Taken Pregabalin [Lyrica] 50 mg PO DAILY 12/05/16 12/05/16 Unknown amLODIPine [Norvasc] 5 mg PO DAILY 12/05/16 12/05/16 Unknown Previous Rx's Medication Instructions Recorded Last Taken Type Ondansetron [Zofran Odt] 4 mg PO QID PRN #20 tab.rapdis 12/05/16 Unknown Rx Polyethylene Glycol 3350 [Miralax 17 gm PO QDAY #30 packet 12/05/16 Unknown Rx 3350] Allergies Allergy/AdvReac Type Severity Reaction Status Date / Time No Known Allergies Allergy Verified 12/19/16 09:24 ED Review of Systems ROS: Stated complaint: LOW SODIUM Other details as noted in HPI Constitutional: weakness. denies: chills, fever Eyes: denies: eye pain, eye discharge, vision change ENT: denies: ear pain, throat pain Respiratory: denies: cough, shortness of breath, wheezing Cardiovascular: denies: chest pain, palpitations Endocrine: no symptoms reported Gastrointestinal: constipation. denies: abdominal pain, nausea, vomiting, diarrhea Genitourinary: denies: urgency, dysuria Musculoskeletal: denies: back pain, joint swelling, arthralgia Skin: denies: rash, lesions Neurological: denies: headache, weakness, paresthesias Psychiatric: denies: anxiety, depression Hematological/Lymphatic: denies: easy bleeding, easy bruising ED Past Medical Hx - Past Medical History Hx Hypertension: Yes Hx Arthritis: Yes Additional medical history: high cholesterol. spinal stenosis - Surgical History Hx Appendectomy: Yes - Social History Smoking Status: Current Some Day Smoker Substance Use Type: None - Medications Home Medications: Home Medications Medication Instructions Recorded Confirmed Last Taken Type Ondansetron [Zofran Odt] 4 mg PO QID PRN #20 tab.rapdis 12/05/16 Unknown Rx Polyethylene Glycol 3350 [Miralax 17 gm PO QDAY #30 packet 12/05/16 Unknown Rx 3350] Pregabalin [Lyrica] 50 mg PO DAILY 12/05/16 12/05/16 Unknown History amLODIPine [Norvasc] 5 mg PO DAILY 12/05/16 12/05/16 Unknown History ED Physical Exam - General Limitations: Physical Limitation General appearance: alert, in no apparent distress - Head Head exam: Present: atraumatic, normocephalic - Eye Eye exam: Present: normal appearance, PERRL, EOMI. Absent: scleral icterus - ENT ENT exam: Present: mucous membranes moist - Neck Neck exam: Present: normal inspection - Respiratory Respiratory exam: Present: normal lung sounds bilaterally. Absent: respiratory distress - Cardiovascular Cardiovascular Exam: Present: regular rate, normal rhythm. Absent: systolic murmur, diastolic murmur, rubs, gallop - GI/Abdominal GI/Abdominal exam: Present: soft, normal bowel sounds. Absent: distended, tenderness, guarding, rebound, rigid, organomegaly, mass - Rectal Rectal exam: Present: deferred - Extremities Exam Extremities exam: Present: normal inspection - Back Exam Back exam: Present: normal inspection - Neurological Exam Neurological exam: Present: alert, oriented X3, CN II-XII intact. Absent: motor sensory deficit - Psychiatric Psychiatric exam: Present: normal affect, normal mood - Skin Skin exam: Present: warm, dry, intact, normal color. Absent: rash ED Course Vital Signs 12/19/16 09:17 Temperature 98.5 F Pulse Rate 44 L Respiratory 14 Rate Blood Pressure 143/62 O2 Sat by Pulse 96 Oximetry - Reevaluation(s) Reevaluation #1: The patient received a liter of normal saline here in the emergency department. This was well-tolerated. He remained awake and alert. The case was discussed with Dr. Marrero who has admitted the patient to the hospitalist service. At this juncture I do not believe the patient necessarily meets criteria for 3% normal saline. I suspect he's been very chronically hyponatremic and he certainly doesn't have any neurological symptoms. Further decision-making on fluids will be per Dr. Marrero at admission. At this time we will treated the patient's normal saline. This has been discussed with the hospitalist. 12/19/16 11:19 ED Medical Decision Making - Lab Data Result diagrams: 12/19/16 10:10 12/19/16 09:34 Laboratory Results - last 24 hr 12/19/16 12/19/16 12/19/16 09:34 10:10 10:10 WBC 6.2 RBC 4.41 Hgb 13.4 Hct 37.9 MCV 86 MCH 30 MCHC 35 H RDW 12.7 L Plt Count 226 Lymph % (Auto) 30.8 [place] % (Auto) 7.8 H Eos % (Auto) 3.8 Baso % (Auto) 0.7 Lymph # 1.9 [place] # 0.5 Eos # 0.2 Baso # 0.0 Seg Neutrophils % 56.9 Seg Neutrophils # 3.5 PT 13.6 INR 1.05 APTT 39.0 H Sodium 114 L* Potassium 3.9 Chloride 79.7 L Carbon Dioxide 21 L Anion Gap 17 BUN 9 Creatinine 0.6 L Estimated GFR > 60 BUN/Creatinine Ratio 15.00 Glucose 116 H Osmolality Lactic Acid Calcium 7.9 L Magnesium Total Bilirubin Direct Bilirubin AST ALT Alkaline Phosphatase Ammonia Total Creatine Kinase CK-MB (CK-2) CK-MB (CK-2) Rel Index Troponin T NT-Pro-B Natriuret Pep Total Protein Albumin Albumin/Globulin Ratio 12/19/16 12/19/16 12/19/16 10:10 10:12 10:32 WBC RBC Hgb Hct MCV MCH MCHC RDW Plt Count Lymph % (Auto) [place] % (Auto) Eos % (Auto) Baso % (Auto) Lymph # [place] # Eos # Baso # Seg Neutrophils % Seg Neutrophils # PT INR APTT Sodium Potassium Chloride Carbon Dioxide Anion Gap BUN Creatinine Estimated GFR BUN/Creatinine Ratio Glucose Osmolality 236 Lactic Acid 0.6 L Calcium Magnesium 1.7 Total Bilirubin 0.4 Direct Bilirubin < 0.2 AST 25 ALT 13 Alkaline Phosphatase 69 Ammonia Total Creatine Kinase 176 H CK-MB (CK-2) 2.8 CK-MB (CK-2) Rel Index 1.5 Troponin T < 0.010 NT-Pro-B Natriuret Pep 1403 H Total Protein 5.7 L Albumin 3.6 L Albumin/Globulin Ratio 1.7 12/19/16 10:32 WBC RBC Hgb Hct MCV MCH MCHC RDW Plt Count Lymph % (Auto) [place] % (Auto) Eos % (Auto) Baso % (Auto) Lymph # [place] # Eos # Baso # Seg Neutrophils % Seg Neutrophils # PT INR APTT Sodium Potassium Chloride Carbon Dioxide Anion Gap BUN Creatinine Estimated GFR BUN/Creatinine Ratio Glucose Osmolality Lactic Acid Calcium Magnesium Total Bilirubin Direct Bilirubin AST ALT Alkaline Phosphatase Ammonia 50.0 Total Creatine Kinase CK-MB (CK-2) CK-MB (CK-2) Rel Index Troponin T NT-Pro-B Natriuret Pep Total Protein Albumin Albumin/Globulin Ratio Laboratory Results - last 24 hr 12/19/16 12/19/16 12/19/16 09:34 10:10 10:10 WBC 6.2 RBC 4.41 Hgb 13.4 Hct 37.9 MCV 86 MCH 30 MCHC 35 H RDW 12.7 L Plt Count 226 Lymph % (Auto) 30.8 [place] % (Auto) 7.8 H Eos % (Auto) 3.8 Baso % (Auto) 0.7 Lymph # 1.9 [place] # 0.5 Eos # 0.2 Baso # 0.0 Seg Neutrophils % 56.9 Seg Neutrophils # 3.5 PT 13.6 INR 1.05 APTT 39.0 H Sodium 114 L* Potassium 3.9 Chloride 79.7 L Carbon Dioxide 21 L Anion Gap 17 BUN 9 Creatinine 0.6 L Estimated GFR > 60 BUN/Creatinine Ratio 15.00 Glucose 116 H Osmolality Lactic Acid Calcium 7.9 L Magnesium Total Bilirubin Direct Bilirubin AST ALT Alkaline Phosphatase Ammonia Total Creatine Kinase CK-MB (CK-2) CK-MB (CK-2) Rel Index Troponin T NT-Pro-B Natriuret Pep Total Protein Albumin Albumin/Globulin Ratio 12/19/16 12/19/16 12/19/16 10:10 10:12 10:32 WBC RBC Hgb Hct MCV MCH MCHC RDW Plt Count Lymph % (Auto) [place] % (Auto) Eos % (Auto) Baso % (Auto) Lymph # [place] # Eos # Baso # Seg Neutrophils % Seg Neutrophils # PT INR APTT Sodium Potassium Chloride Carbon Dioxide Anion Gap BUN Creatinine Estimated GFR BUN/Creatinine Ratio Glucose Osmolality 236 Lactic Acid 0.6 L Calcium Magnesium 1.7 Total Bilirubin 0.4 Direct Bilirubin < 0.2 AST 25 ALT 13 Alkaline Phosphatase 69 Ammonia Total Creatine Kinase 176 H CK-MB (CK-2) 2.8 CK-MB (CK-2) Rel Index 1.5 Troponin T < 0.010 NT-Pro-B Natriuret Pep 1403 H Total Protein 5.7 L Albumin 3.6 L Albumin/Globulin Ratio 1.7 12/19/16 10:32 WBC RBC Hgb Hct MCV MCH MCHC RDW Plt Count Lymph % (Auto) [place] % (Auto) Eos % (Auto) Baso % (Auto) Lymph # [place] # Eos # Baso # Seg Neutrophils % Seg Neutrophils # PT INR APTT Sodium Potassium Chloride Carbon Dioxide Anion Gap BUN Creatinine Estimated GFR BUN/Creatinine Ratio Glucose Osmolality Lactic Acid Calcium Magnesium Total Bilirubin Direct Bilirubin AST ALT Alkaline Phosphatase Ammonia 50.0 Total Creatine Kinase CK-MB (CK-2) CK-MB (CK-2) Rel Index Troponin T NT-Pro-B Natriuret Pep Total Protein Albumin Albumin/Globulin Ratio - EKG Data -: EKG Interpreted by Me EKG shows normal: sinus rhythm, axis, intervals, ST-T waves Rate: bradycardia - EKG Data There are deep T-wave inversions in V3 through 6. Ischemia cannot be excluded. I suspect this might be related to the patient's hyponatremia. The rhythm is sinus bradycardia 12/19/16 11:26 - Radiology Data interpreted by me: Chest x-ray showed cardiomegaly without decompensation no acute process. Critical care attestation.: If time is entered above; I have spent that time in minutes in the direct care of this critically ill patient, excluding procedure time. ED Disposition Clinical Impression: Hyponatremia, Abnormal EKG, Sinus bradycardia Disposition: OP ADMITTED IP TO THIS HOSP Is pt being admited?: Yes Condition: Stable Referrals: PRIMARY CARE, [Primary Care Provider] - 3-5 Days Time of Disposition: 11:28
[2016-12-19] MEDS ORDERED: BABY ASPIRIN PO SCH (12:00)
[2016-12-19] MEDS: LOVENOX SUB-Q SCH (17:14)
[2016-12-20] MEDS ORDERED: NACL 3% 500 ML IV ONE
--- NOTE | 2016-12-20 00:01 | Event Note ---
Date: 12/20/16 See H/pin reports Hyponatremia Spinal stenosis Laxative induced
--- NOTE | 2016-12-20 00:21 | History and Physical Report ---
CHIEF COMPLAINT: Severe weakness. HISTORY OF PRESENT ILLNESS: An 81-year-old male who comes in for severe weakness. The patient was discharged on 12/09/2016, following fecal retention. He had opiate-induced constipation. He is on chronic opioids for spinal stenosis. Since discharge, he has been feeling weak. His sodium level was 133 at the time of discharge, today, it was 114. Primary care physician who has drawn labs and called him today saying that his sodium was . No abdominal pain. He has been having loose stools because was taking laxatives and MiraLax on a regular basis. PAST MEDICAL HISTORY: Significant for hypertension, peripheral neuropathy, also spinal stenosis, hypertension, and arthritis. PAST SURGICAL HISTORY: Appendectomy. SOCIAL HISTORY: He smokes about a pack a day. FAMILY HISTORY: Significant for hypertension. CURRENT MEDICATIONS: MiraLax, Lyrica 50 daily, and amlodipine 5 mg daily, ondansetron p.r.n. for vomiting. REVIEW OF SYSTEMS: GENERAL: The patient is weak and tired. CONSTITUTIONAL: No weight loss, no weight gain. Generalized weakness present. HEENT: No sore throat. No postnasal drip. CARDIOVASCULAR AND RESPIRATORY SYSTEM: No shortness of breath, no chest pain, no palpitations. GASTROINTESTINAL: Loose stools present secondary to MiraLax. CENTRAL NERVOUS SYSTEM: No dysuria. No flank pain. MUSCULOSKELETAL SYSTEM: No joint pains, but feels weak. CENTRAL NERVOUS SYSTEM: No syncope, no seizures. PHYSICAL EXAMINATION: VITAL SIGNS: On examination, male, cooperative during examination, blood pressure is 148/58, pulse is 47, respirations 20, temperature is 98. HEENT: Unremarkable. Pupils equal and reactive. NECK: Supple, no lymphadenopathy, no thyromegaly. LUNGS: Clear to auscultation and percussion. Good air entry. CARDIOVASCULAR: S1, S2 heard. No gallop, no murmur, no rub. Apical impulse in the left fifth intercostal space and midclavicular line. ABDOMEN: Soft and benign. No hepatosplenomegaly. No guarding, no rigidity. Hernial orifices are normal. EXTREMITIES: Good pedal pulses. No pedal edema. CENTRAL NERVOUS SYSTEM: Alert and oriented x 4, nonfocal exam. LABORATORY DATA: Significant for sodium of 114, osmolality was 236. BUN and creatinine 9 and 0.6. H and H is 13.4 and 37.9. Calcium is 7.9, lactic acid is 0.6. Total protein is 5.7, albumin is 3.6. BNP is 1403. ASSESSMENT AND PLAN: 1. Hyponatremia secondary to laxatives. We will change the laxatives twice a week. Decrease his opiates. The patient is not on opiates; now, he is on Lyrica. 3% saline for 50 mL per hour for 10 hours. 2. Hyperlipidemia. Continue Crestor 10 mg q.48 hours. 3. Generalized anxiety disorder. Continue Xanax 0.25 at bedtime. 4. Hypertension. Continue amlodipine 5 mg p.o. daily. 5. Spinal stenosis. Continue Lyrica 50 mg p.o. b.i.d. 6. Deep venous thrombosis prophylaxis, Lovenox 40 mg subcutaneous daily. [facility]# [id number] KEM/NTS
[2016-12-20 00:26] LABS: Chloride 87.4 mmol/L (98-107); Potassium 4.1 mmol/L (3.6-5.0)
--- NOTE | 2016-12-20 01:43 | Admit Criteria Form ---
Admission Criteria Documentation: HYPONATREMIA; HYPERNATREMIA; HYPOKALEMIA; HYPERKALEMIA; HYPOCALCEMIA; HYPERCALCEMIA Clinical Indications for Inpatient Care (Place 'X' for any and all applicable criteria): Ongoing inpatient care may be indicated for ANY ONE of the following [G](1)(2)(3 )(5): [ X]I. Hyponatremia with ANY ONE of the following: [ X]a) Sodium less than 130 mEq/L (mmol/L) (new) (6)(22) [ ]b) Sodium less than 135 mEq/L (mmol/L) with ANY ONE of the following: [ ]i) Severe medical etiology requiring inpatient management (eg, heart failure, hypovolemia) [ ]ii) Altered mental status [ ]iii) Seizures [ ]II. Hypernatremia with ANY ONE of the following: [ ]a) Sodium greater than 155 mEq/L (mmol/L) [ ]b) Sodium greater than 150 mEq/L (mmol/L) with ANY ONE of the following: [ ] i) Altered mental status [ ]ii) Seizures [ ]iii) Severe medical etiology (eg, hypovolemia, diabetes insipidus) [ ]iv) Severe weakness [ ]v) Severe medical etiology (eg, hemolysis, infection, drug overdose) [ ]III. Hypokalemia with ANY ONE of the following: [ ]a) Potassium less than 2.5 mEq/L (mmol/L) despite outpatient and emergency treatment [ ]b) Potassium less than 3.0 mEq/L (mmol/L) with ANY ONE of the following: [ ]i) Weakness [ ]ii) Cardiac abnormality (eg, arrhythmia, conduction disturbance) [ ]iii) Cardiac ischemia [ ]iv) Ileus [ ]v) Ongoing medical cause requiring inpatient management. ( e.g., acute renal wasting, SIADH) [ ]vi) Other severe symptoms [ ] IV. Hyperkalemia with ANY ONE of the following: [ ]a) Potassium greater than 6.5 mEq/L (mmol/L) [ ]b) Potassium greater than 5 mEq/L (mmol/L) with ANY ONE of the following: [ ]i) Severe ECG findings [H] [ ]ii) Acute worsening of renal failure (creatinine greater than 2.5 mg/dL (221 micromoles/L) or significant elevation for age and size) [ ] V. Hypocalcemia with ANY ONE of the following: [ ]a) Calcium less than 7 mg/dL (1.75 mmol/L) despite outpatient and emergency treatment(19) [ ]b) Calcium less than 8 mg/dL (2 mmol/L) with significant symptoms or findings; examples include: [ ]i) Cardiac abnormality (eg, arrhythmia or conduction disturbance) [ ]ii) Altered mental status [ ]iii) Seizures [ ]iv) Breathing difficulty [ ]v) Muscle spasms [ ]. Hypercalcemia with ANY ONE of the following: [ ]a) Calcium greater than 14 mg/dL (3.5 mmol/L) [ ]b) Calcium greater than 12 mg/dL (3 mmol/L) with ANY ONE of the following: [ ]i) Significant dehydration or hypovolemia as indicated by ANY ONE of the following(2): [ ]1. Clinically significant dehydration as indicated by ANY ONE of the following: [ ]A. Acute loss of weight from baseline (5% of body weight in adults, 9% in pediatric patients) [ ]B. Hemodynamic instability [ ]C. Acute renal failure [ ]D. Serum sodium greater than 150 mEq/L (mmol/L) [ ]2) Dehydration that is persistent indicated by ALL of the following: [ ]A. Oral rehydration therapy not tolerated or insufficient to adequately correct dehydration [ ]B. Appropriate intravenous treatment (eg, fluids ) does not readily correct dehydration ie, after 12 to 24 hours of treatment) [ ]ii) Significant symptoms or findings; examples include: [ ]1) Altered mental status [ ]2) Cardiac abnormality (eg, arrhythmia, conduction disturbance) [ ]3) Cardiac abnormality (eg, arrhythmia, conduction disturbance) The original [facility] content created by [employer] has been revised. The portions of the content which have been revised are identified through the use of italic text or in bold, and [facility] has neither reviewed nor approved the modified material. All other unmodified content is copyright [facility] [employer] Please see references footnoted in the original [facility] [employer] edition 2016 Admission Criteria Met: Yes
[2016-12-20 06:08] LABS: Basophils % (Auto) 0.8 % (0.0-1.8); Eosinophils % (Auto) 3.4 % (0.0-4.3); Hematocrit 34.8 % (35.5-45.6); Hemoglobin 12.1 gm/dl (11.8-15.2); Mean Corpuscular HGB Conc 35 % (32-34); Mean Corpuscular Hemoglobin 30 pg (28-32); Mean Corpuscular Volume 86 fl (84-94); Platelet Count 211 K/mm3 (140-440); Red Blood Count 4.05 M/mm3 (3.65-5.03); Red Cell Distribution Width 12.9 % (13.2-15.2)
[2016-12-20 06:17] LABS: Alanine Aminotransferase 12 units/L (7-56); Albumin 3.1 g/dL (3.9-5); Albumin/Globulin Ratio 1.4 %; Alkaline Phosphatase 59 units/L (35-129); Anion Gap 16 mmol/L; Bilirubin,Total 0.3 mg/dL (0.1-1.2); Blood Urea Nitrogen 6 mg/dL (9-20); Calcium 7.4 mg/dL (8.4-10.2); Carbon Dioxide 22 mmol/L (22-30); Chloride 88.5 mmol/L (98-107); Glucose 100 mg/dL (75-100); Potassium 3.7 mmol/L (3.6-5.0); Sodium 123 mmol/L (137-145); Total Protein 5.3 g/dL (6.3-8.2)
[2016-12-20] MEDS: LYRICA PO SCH (09:09)
[2016-12-20] MEDS: NORVASC PO SCH (09:10)
[2016-12-20] MEDS: LOVENOX SUB-Q SCH (09:12)
--- NOTE | 2016-12-20 09:32 | Progress Note ---
Assessment and Plan Assessment and plan: General weakness due to hyponatremia Hyponatremia. Started on 3% NaCl. Will switch to Normal saline. Hypertension. BP stable on Norvasc. Spinal stenosis with pain. Start Percocet prn Cont Lyrica Peripheral neuropathy. Lyrica History Interval history: General weakness, back pain Hospitalist Physical - Physical exam Narrative exam: Gen: Not in acute distress, HEENT: Normocephalic, atraumatic Neck: supple, no JVD Lungs:Lungs clear to auscultation, bilaterally, no crackles or wheeze Heart S1-S2 regular, no murmurs rubs or gallop, Abdomen: soft, non tender, non distended, normal bowel sounds , Ext: No edema, clubbing or cyanosis. Neuro: Awake.alert, oriented x 3, non focal - Constitutional Vitals: Temp Pulse Resp BP Pulse Ox 98.2 F 46 L 16 168/74 97 12/20/16 04:23 12/20/16 09:10 12/20/16 04:23 12/20/16 09:10 12/20/16 04:23 Results - Labs CBC & Chem 7: 12/20/16 04:50 12/20/16 19:12 Labs: Laboratory Last Values WBC 5.0 K/mm3 (4.5-11.0) 12/20/16 04:50 RBC 4.05 M/mm3 (3.65-5.03) 12/20/16 04:50 Hgb 12.1 gm/dl (11.8-15.2) 12/20/16 04:50 Hct 34.8 % (35.5-45.6) L 12/20/16 04:50 MCV 86 fl (84-94) 12/20/16 04:50 MCH 30 pg (28-32) 12/20/16 04:50 MCHC 35 % (32-34) H 12/20/16 04:50 RDW 12.9 % (13.2-15.2) L 12/20/16 04:50 Plt Count 211 K/mm3 (140-440) 12/20/16 04:50 Lymph % (Auto) 31.2 % (13.4-35.0) 12/20/16 04:50 [place] % (Auto) 8.7 % (0.0-7.3) H 12/20/16 04:50 Eos % (Auto) 3.4 % (0.0-4.3) 12/20/16 04:50 Baso % (Auto) 0.8 % (0.0-1.8) 12/20/16 04:50 Lymph # 1.6 K/mm3 (1.2-5.4) 12/20/16 04:50 [place] # 0.4 K/mm3 (0.0-0.8) 12/20/16 04:50 Eos # 0.2 K/mm3 (0.0-0.4) 12/20/16 04:50 Baso # 0.0 K/mm3 (0.0-0.1) 12/20/16 04:50 Seg Neutrophils % 55.9 % (40.0-70.0) 12/20/16 04:50 Seg Neutrophils # 2.8 K/mm3 (1.8-7.7) 12/20/16 04:50 PT 13.6 Sec. (12.2-14.9) 12/19/16 10:10 INR 1.05 (0.87-1.13) 12/19/16 10:10 APTT 39.0 Sec. (24.2-36.6) H 12/19/16 10:10 Sodium 123 mmol/L (137-145) L 12/20/16 04:50 Potassium 3.7 mmol/L (3.6-5.0) 12/20/16 04:50 Chloride 88.5 mmol/L (98-107) L 12/20/16 04:50 Carbon Dioxide 22 mmol/L (22-30) 12/20/16 04:50 Anion Gap 16 mmol/L 12/20/16 04:50 BUN 6 mg/dL (9-20) L 12/20/16 04:50 Creatinine 0.5 mg/dL (0.8-1.5) L 12/20/16 04:50 Estimated GFR > 60 ml/min 12/20/16 04:50 BUN/Creatinine Ratio 12.00 % 12/20/16 04:50 Glucose 100 mg/dL (75-100) 12/20/16 04:50 Osmolality 236 Mosm/kg 12/19/16 10:12 Lactic Acid 0.6 mmol/L (0.7-2.0) L 12/19/16 10:32 Calcium 7.4 mg/dL (8.4-10.2) L 12/20/16 04:50 Magnesium 1.7 mg/dL (1.7-2.3) 12/19/16 10:10 Total Bilirubin 0.3 mg/dL (0.1-1.2) 12/20/16 04:50 Direct Bilirubin < 0.2 mg/dL (0-0.2) 12/19/16 10:10 AST 22 units/L (5-40) 12/20/16 04:50 ALT 12 units/L (7-56) 12/20/16 04:50 Alkaline Phosphatase 59 units/L (35-129) 12/20/16 04:50 Ammonia 50.0 umol/L (25-60) 12/19/16 10:32 Total Creatine Kinase 176 units/L (55-170) H 12/19/16 10:10 CK-MB (CK-2) 2.8 ng/mL (0.0-4.0) 12/19/16 10:10 CK-MB (CK-2) Rel Index 1.5 (0-4) 12/19/16 10:10 Troponin T < 0.010 ng/mL (0.00-0.029) 12/19/16 10:10 NT-Pro-B Natriuret Pep 1403 pg/mL (0-900) H 12/19/16 10:10 Total Protein 5.3 g/dL (6.3-8.2) L 12/20/16 04:50 Albumin 3.1 g/dL (3.9-5) L 12/20/16 04:50 Albumin/Globulin Ratio 1.4 % 12/20/16 04:50
[2016-12-20] MEDS: NACL 0.9% 1000 ML 1,000 ML IV SCH (11:04)
[2016-12-20] MEDS: PERCOCET 5/325 PO PRN (18:49)
[2016-12-20 20:04] LABS: Anion Gap 16 mmol/L; Blood Urea Nitrogen 5 mg/dL (9-20); Calcium 7.4 mg/dL (8.4-10.2); Carbon Dioxide 21 mmol/L (22-30); Chloride 86.2 mmol/L (98-107); Glucose 128 mg/dL (75-100); Potassium 3.3 mmol/L (3.6-5.0); Sodium 120 mmol/L (137-145)
[2016-12-20] MEDS: XANAX PO SCH (21:23)
[2016-12-21] MEDS: PERCOCET 5/325 PO PRN ×3 (03:51→21:24)
[2016-12-21 05:58] LABS: Anion Gap 18 mmol/L; Blood Urea Nitrogen 4 mg/dL (9-20); Calcium 7.6 mg/dL (8.4-10.2); Carbon Dioxide 20 mmol/L (22-30); Chloride 93.6 mmol/L (98-107); Glucose 110 mg/dL (75-100); Magnesium 1.9 mg/dL (1.7-2.3); Phosphorous 2.4 mg/dL (2.5-4.5); Potassium 3.5 mmol/L (3.6-5.0)
[2016-12-21 06:04] LABS: Sodium 130 mmol/L (137-145)
[2016-12-21] MEDS: LOVENOX SUB-Q SCH (10:32)
[2016-12-21] MEDS: MIRALAX 3350 PO SCH (10:33)
[2016-12-21] MEDS: LYRICA PO SCH (10:33)
[2016-12-21] MEDS: NORVASC PO SCH (10:34)
[2016-12-21] MEDS ORDERED: KPHOS 30 MMOL in NACL 0.9% 500 ML 500 ML IV ONE (11:00)
--- NOTE | 2016-12-21 12:09 | Progress Note ---
Assessment and Plan Assessment and plan: General weakness due to hyponatremia Hyponatremia. Initially started on 3% NaCl, then switched to Normal saline. Sodium improving 130 today. Continue NS. Hypertension. BP stable on Norvasc 5mg po daily. Spinal stenosis with pain. continue Percocet prn Cont Lyrica Peripheral neuropathy. Lyrica. DVT prophylaxis with Lovenox Full code status History Interval history: General weakness,improving back pain Hospitalist Physical - Physical exam Narrative exam: Gen: Not in acute distress, HEENT: Normocephalic, atraumatic Neck: supple, no JVD Lungs:Lungs clear to auscultation, bilaterally, no crackles or wheeze Heart S1-S2 regular, no murmurs rubs or gallop, Abdomen: soft, non tender, non distended, normal bowel sounds , Ext: No edema, clubbing or cyanosis. Neuro: Awake.alert, oriented x 3, non focal - Constitutional Vitals: Temp Pulse Resp BP Pulse Ox 99.2 F 79 18 133/91 96 12/21/16 07:00 12/21/16 10:34 12/21/16 07:00 12/21/16 10:34 12/21/16 07:00 Results - Labs CBC & Chem 7: 12/20/16 04:50 12/21/16 05:03 Labs: Laboratory Last Values WBC 5.0 K/mm3 (4.5-11.0) 12/20/16 04:50 RBC 4.05 M/mm3 (3.65-5.03) 12/20/16 04:50 Hgb 12.1 gm/dl (11.8-15.2) 12/20/16 04:50 Hct 34.8 % (35.5-45.6) L 12/20/16 04:50 MCV 86 fl (84-94) 12/20/16 04:50 MCH 30 pg (28-32) 12/20/16 04:50 MCHC 35 % (32-34) H 12/20/16 04:50 RDW 12.9 % (13.2-15.2) L 12/20/16 04:50 Plt Count 211 K/mm3 (140-440) 12/20/16 04:50 Lymph % (Auto) 31.2 % (13.4-35.0) 12/20/16 04:50 [place] % (Auto) 8.7 % (0.0-7.3) H 12/20/16 04:50 Eos % (Auto) 3.4 % (0.0-4.3) 12/20/16 04:50 Baso % (Auto) 0.8 % (0.0-1.8) 12/20/16 04:50 Lymph # 1.6 K/mm3 (1.2-5.4) 12/20/16 04:50 [place] # 0.4 K/mm3 (0.0-0.8) 12/20/16 04:50 Eos # 0.2 K/mm3 (0.0-0.4) 12/20/16 04:50 Baso # 0.0 K/mm3 (0.0-0.1) 12/20/16 04:50 Seg Neutrophils % 55.9 % (40.0-70.0) 12/20/16 04:50 Seg Neutrophils # 2.8 K/mm3 (1.8-7.7) 12/20/16 04:50 PT 13.6 Sec. (12.2-14.9) 12/19/16 10:10 INR 1.05 (0.87-1.13) 12/19/16 10:10 APTT 39.0 Sec. (24.2-36.6) H 12/19/16 10:10 Sodium 130 mmol/L (137-145) L D 12/21/16 05:03 Potassium 3.5 mmol/L (3.6-5.0) L 12/21/16 05:03 Chloride 93.6 mmol/L (98-107) L 12/21/16 05:03 Carbon Dioxide 20 mmol/L (22-30) L 12/21/16 05:03 Anion Gap 18 mmol/L 12/21/16 05:03 BUN 4 mg/dL (9-20) L 12/21/16 05:03 Creatinine 0.5 mg/dL (0.8-1.5) L 12/21/16 05:03 Estimated GFR > 60 ml/min 12/21/16 05:03 BUN/Creatinine Ratio 8.00 % 12/21/16 05:03 Glucose 110 mg/dL (75-100) H 12/21/16 05:03 Osmolality 236 Mosm/kg 12/19/16 10:12 Lactic Acid 0.6 mmol/L (0.7-2.0) L 12/19/16 10:32 Calcium 7.6 mg/dL (8.4-10.2) L 12/21/16 05:03 Phosphorus 2.4 mg/dL (2.5-4.5) L 12/21/16 05:03 Magnesium 1.9 mg/dL (1.7-2.3) 12/21/16 05:03 Total Bilirubin 0.3 mg/dL (0.1-1.2) 12/20/16 04:50 Direct Bilirubin < 0.2 mg/dL (0-0.2) 12/19/16 10:10 AST 22 units/L (5-40) 12/20/16 04:50 ALT 12 units/L (7-56) 12/20/16 04:50 Alkaline Phosphatase 59 units/L (35-129) 12/20/16 04:50 Ammonia 50.0 umol/L (25-60) 12/19/16 10:32 Total Creatine Kinase 176 units/L (55-170) H 12/19/16 10:10 CK-MB (CK-2) 2.8 ng/mL (0.0-4.0) 12/19/16 10:10 CK-MB (CK-2) Rel Index 1.5 (0-4) 12/19/16 10:10 Troponin T < 0.010 ng/mL (0.00-0.029) 12/19/16 10:10 NT-Pro-B Natriuret Pep 1403 pg/mL (0-900) H 12/19/16 10:10 Total Protein 5.3 g/dL (6.3-8.2) L 12/20/16 04:50 Albumin 3.1 g/dL (3.9-5) L 12/20/16 04:50 Albumin/Globulin Ratio 1.4 % 12/20/16 04:50
[2016-12-21] MEDS: NACL 0.9% 1000 ML 1,000 ML IV SCH (15:24)
[2016-12-21] MEDS: XANAX PO SCH (21:24)
[2016-12-21] MEDS: ZOFRAN ODT PO PRN (21:24)
[2016-12-22 05:57] LABS: Anion Gap 18 mmol/L; BUN/Creatinine Ratio 6.25; Blood Urea Nitrogen 5 mg/dL (9-20); Calcium 7.8 mg/dL (8.4-10.2); Carbon Dioxide 22 mmol/L (22-30); Chloride 102.6 mmol/L (98-107); Glucose 105 mg/dL (75-100); Potassium 3.8 mmol/L (3.6-5.0); Sodium 139 mmol/L (137-145)
--- NOTE | 2016-12-22 07:35 | Discharge Summary ---
Providers - Providers Date of Admission: 12/19/16 12:35 Attending physician: LOGAN AGUIAR 12/21/16 07:27 Physical Therapy Evaluation and Treat [CONS] Routine Comment: Reason For Exam: gen weakness Primary care physician: DATA COLLECTOR Hospitalization Condition: Stable Disposition: STILL A PATIENT Exam - Constitutional Vitals: Temp Pulse Resp BP Pulse Ox 101.3 F H 59 L 18 116/56 98 12/22/16 04:37 12/22/16 04:37 12/22/16 04:37 12/22/16 04:37 12/21/16 20:28 Plan Follow up with: PRIMARY CAREMD [Primary Care Provider] - 3-5 Days
--- NOTE | 2016-12-22 08:52 | Progress Note ---
Assessment and Plan Assessment and plan: General weakness due to hyponatremia, improved Hyponatremia. Resolved after 3% NaCl, followed by Normal saline. Sodium 139, normal. Continue NS. Fever. Get UA, Urine culture, chest X ray. cancel intended discharge. Hypertension. BP stable on Norvasc 5mg po daily. Spinal stenosis with pain. continue Percocet prn Cont Lyrica Peripheral neuropathy. Lyrica. DVT prophylaxis with Lovenox Full code status Addendum: UTI. Start Levaquin History Interval history: Fever General weakness,improving less back pain Hospitalist Physical - Physical exam Narrative exam: Gen: Not in acute distress, obese HEENT: Normocephalic, atraumatic Neck: supple, no JVD Lungs:Lungs clear to auscultation, bilaterally, no crackles or wheeze Heart S1-S2 regular, no murmurs rubs or gallop, Abdomen: soft, non tender, non distended, normal bowel sounds , Ext: No edema, clubbing or cyanosis. Neuro: Awake.alert, oriented x 3, non focal - Constitutional Vitals: Temp Pulse Resp BP Pulse Ox 100 F H 62 18 128/60 98 12/22/16 08:22 12/22/16 08:22 12/22/16 08:22 12/22/16 08:22 12/22/16 08:22 Results - Labs CBC & Chem 7: 12/20/16 04:50 12/22/16 05:07 Labs: Laboratory Last Values WBC 5.0 K/mm3 (4.5-11.0) 12/20/16 04:50 RBC 4.05 M/mm3 (3.65-5.03) 12/20/16 04:50 Hgb 12.1 gm/dl (11.8-15.2) 12/20/16 04:50 Hct 34.8 % (35.5-45.6) L 12/20/16 04:50 MCV 86 fl (84-94) 12/20/16 04:50 MCH 30 pg (28-32) 12/20/16 04:50 MCHC 35 % (32-34) H 12/20/16 04:50 RDW 12.9 % (13.2-15.2) L 12/20/16 04:50 Plt Count 211 K/mm3 (140-440) 12/20/16 04:50 Lymph % (Auto) 31.2 % (13.4-35.0) 12/20/16 04:50 [place] % (Auto) 8.7 % (0.0-7.3) H 12/20/16 04:50 Eos % (Auto) 3.4 % (0.0-4.3) 12/20/16 04:50 Baso % (Auto) 0.8 % (0.0-1.8) 12/20/16 04:50 Lymph # 1.6 K/mm3 (1.2-5.4) 12/20/16 04:50 [place] # 0.4 K/mm3 (0.0-0.8) 12/20/16 04:50 Eos # 0.2 K/mm3 (0.0-0.4) 12/20/16 04:50 Baso # 0.0 K/mm3 (0.0-0.1) 12/20/16 04:50 Seg Neutrophils % 55.9 % (40.0-70.0) 12/20/16 04:50 Seg Neutrophils # 2.8 K/mm3 (1.8-7.7) 12/20/16 04:50 PT 13.6 Sec. (12.2-14.9) 12/19/16 10:10 INR 1.05 (0.87-1.13) 12/19/16 10:10 APTT 39.0 Sec. (24.2-36.6) H 12/19/16 10:10 Sodium 139 mmol/L (137-145) D 12/22/16 05:07 Potassium 3.8 mmol/L (3.6-5.0) 12/22/16 05:07 Chloride 102.6 mmol/L (98-107) 12/22/16 05:07 Carbon Dioxide 22 mmol/L (22-30) 12/22/16 05:07 Anion Gap 18 mmol/L 12/22/16 05:07 BUN 5 mg/dL (9-20) L 12/22/16 05:07 Creatinine 0.8 mg/dL (0.8-1.5) D 12/22/16 05:07 Estimated GFR > 60 ml/min 12/22/16 05:07 BUN/Creatinine Ratio 6.25 % 12/22/16 05:07 Glucose 105 mg/dL (75-100) H 12/22/16 05:07 Osmolality 236 Mosm/kg 12/19/16 10:12 Lactic Acid 0.6 mmol/L (0.7-2.0) L 12/19/16 10:32 Calcium 7.8 mg/dL (8.4-10.2) L 12/22/16 05:07 Phosphorus 2.4 mg/dL (2.5-4.5) L 12/21/16 05:03 Magnesium 1.9 mg/dL (1.7-2.3) 12/21/16 05:03 Total Bilirubin 0.3 mg/dL (0.1-1.2) 12/20/16 04:50 Direct Bilirubin < 0.2 mg/dL (0-0.2) 12/19/16 10:10 AST 22 units/L (5-40) 12/20/16 04:50 ALT 12 units/L (7-56) 12/20/16 04:50 Alkaline Phosphatase 59 units/L (35-129) 12/20/16 04:50 Ammonia 50.0 umol/L (25-60) 12/19/16 10:32 Total Creatine Kinase 176 units/L (55-170) H 12/19/16 10:10 CK-MB (CK-2) 2.8 ng/mL (0.0-4.0) 12/19/16 10:10 CK-MB (CK-2) Rel Index 1.5 (0-4) 12/19/16 10:10 Troponin T < 0.010 ng/mL (0.00-0.029) 12/19/16 10:10 NT-Pro-B Natriuret Pep 1403 pg/mL (0-900) H 12/19/16 10:10 Total Protein 5.3 g/dL (6.3-8.2) L 12/20/16 04:50 Albumin 3.1 g/dL (3.9-5) L 12/20/16 04:50 Albumin/Globulin Ratio 1.4 % 12/20/16 04:50
[2016-12-22 09:30] LABS: Bacteria,Urine 1+ /HPF (Negative); Bilirubin,Urine NEG (Negative); Blood,Urine LG (Negative); Ketones,Urine NEG (Negative); Leukocyte Esterase,Urine LG (Negative); Nitrite,Urine POS (Negative); Urobilinogen,Urine < 2.0 mg/dL (<2.0)
[2016-12-22 09:33] LABS: RBC,Urine > 182.0 /HPF (0.0-6.0); WBC,Urine > 182.0 /HPF (0.0-6.0)
[2016-12-22] MEDS: NACL 0.9% 1000 ML 1,000 ML IV SCH ×2 (09:55→23:11)
--- NOTE | 2016-12-22 10:03 | Progress Note ---
Hospitalist Physical - Constitutional Vitals: Temp Pulse Resp BP Pulse Ox 100 F H 62 18 128/60 98 12/22/16 08:22 12/22/16 08:22 12/22/16 08:22 12/22/16 08:22 12/22/16 08:22 Results - Labs CBC & Chem 7: 12/20/16 04:50 12/22/16 05:07 Labs: Laboratory Last Values WBC 5.0 K/mm3 (4.5-11.0) 12/20/16 04:50 RBC 4.05 M/mm3 (3.65-5.03) 12/20/16 04:50 Hgb 12.1 gm/dl (11.8-15.2) 12/20/16 04:50 Hct 34.8 % (35.5-45.6) L 12/20/16 04:50 MCV 86 fl (84-94) 12/20/16 04:50 MCH 30 pg (28-32) 12/20/16 04:50 MCHC 35 % (32-34) H 12/20/16 04:50 RDW 12.9 % (13.2-15.2) L 12/20/16 04:50 Plt Count 211 K/mm3 (140-440) 12/20/16 04:50 Lymph % (Auto) 31.2 % (13.4-35.0) 12/20/16 04:50 [place] % (Auto) 8.7 % (0.0-7.3) H 12/20/16 04:50 Eos % (Auto) 3.4 % (0.0-4.3) 12/20/16 04:50 Baso % (Auto) 0.8 % (0.0-1.8) 12/20/16 04:50 Lymph # 1.6 K/mm3 (1.2-5.4) 12/20/16 04:50 [place] # 0.4 K/mm3 (0.0-0.8) 12/20/16 04:50 Eos # 0.2 K/mm3 (0.0-0.4) 12/20/16 04:50 Baso # 0.0 K/mm3 (0.0-0.1) 12/20/16 04:50 Seg Neutrophils % 55.9 % (40.0-70.0) 12/20/16 04:50 Seg Neutrophils # 2.8 K/mm3 (1.8-7.7) 12/20/16 04:50 PT 13.6 Sec. (12.2-14.9) 12/19/16 10:10 INR 1.05 (0.87-1.13) 12/19/16 10:10 APTT 39.0 Sec. (24.2-36.6) H 12/19/16 10:10 Sodium 139 mmol/L (137-145) D 12/22/16 05:07 Potassium 3.8 mmol/L (3.6-5.0) 12/22/16 05:07 Chloride 102.6 mmol/L (98-107) 12/22/16 05:07 Carbon Dioxide 22 mmol/L (22-30) 12/22/16 05:07 Anion Gap 18 mmol/L 12/22/16 05:07 BUN 5 mg/dL (9-20) L 12/22/16 05:07 Creatinine 0.8 mg/dL (0.8-1.5) D 12/22/16 05:07 Estimated GFR > 60 ml/min 12/22/16 05:07 BUN/Creatinine Ratio 6.25 % 12/22/16 05:07 Glucose 105 mg/dL (75-100) H 12/22/16 05:07 Osmolality 236 Mosm/kg 12/19/16 10:12 Lactic Acid 0.6 mmol/L (0.7-2.0) L 12/19/16 10:32 Calcium 7.8 mg/dL (8.4-10.2) L 12/22/16 05:07 Phosphorus 2.4 mg/dL (2.5-4.5) L 12/21/16 05:03 Magnesium 1.9 mg/dL (1.7-2.3) 12/21/16 05:03 Total Bilirubin 0.3 mg/dL (0.1-1.2) 12/20/16 04:50 Direct Bilirubin < 0.2 mg/dL (0-0.2) 12/19/16 10:10 AST 22 units/L (5-40) 12/20/16 04:50 ALT 12 units/L (7-56) 12/20/16 04:50 Alkaline Phosphatase 59 units/L (35-129) 12/20/16 04:50 Ammonia 50.0 umol/L (25-60) 12/19/16 10:32 Total Creatine Kinase 176 units/L (55-170) H 12/19/16 10:10 CK-MB (CK-2) 2.8 ng/mL (0.0-4.0) 12/19/16 10:10 CK-MB (CK-2) Rel Index 1.5 (0-4) 12/19/16 10:10 Troponin T < 0.010 ng/mL (0.00-0.029) 12/19/16 10:10 NT-Pro-B Natriuret Pep 1403 pg/mL (0-900) H 12/19/16 10:10 Total Protein 5.3 g/dL (6.3-8.2) L 12/20/16 04:50 Albumin 3.1 g/dL (3.9-5) L 12/20/16 04:50 Albumin/Globulin Ratio 1.4 % 12/20/16 04:50 Urine Color Yellow (Yellow) 12/22/16 08:50 Urine Turbidity Cloudy (Clear) 12/22/16 08:50 Urine pH 5.0 (5.0-7.0) 12/22/16 08:50 Ur Specific [place] 1.011 (1.003-1.030) 12/22/16 08:50 Urine Protein 100 mg/dl mg/dL (Negative) 12/22/16 08:50 Urine Glucose (UA) Neg mg/dL (Negative) 12/22/16 08:50 Urine Ketones Neg mg/dL (Negative) 12/22/16 08:50 Urine Blood Lg (Negative) 12/22/16 08:50 Urine Nitrite Pos (Negative) 12/22/16 08:50 Urine Bilirubin Neg (Negative) 12/22/16 08:50 Urine Ictotest Not Reportable 12/22/16 08:50 Urine Urobilinogen < 2.0 mg/dL (<2.0) 12/22/16 08:50 Ur Leukocyte Esterase Lg (Negative) 12/22/16 08:50 Urine WBC (Auto) > 182.0 /HPF (0.0-6.0) H 12/22/16 08:50 Urine RBC (Auto) > 182.0 /HPF (0.0-6.0) 12/22/16 08:50 Urine Bacteria (Auto) 1+ /HPF (Negative) 12/22/16 08:50 Urine WBC Clumps 3+ /HPF 12/22/16 08:50
--- NOTE | 2016-12-22 10:04 | XRay Report ---
AP CHEST: HISTORY: Fever AP view of the chest demonstrates a normal mediastinal and cardiac contour with clear lungs and normal bony and soft tissue structures. IMPRESSION: Unremarkable AP chest. No change since 12/19/16.
[2016-12-22] MEDS: LEVAQUIN 500MG/100ML 500 MG/100 ML BAG IV SCH (11:26)
[2016-12-22] MEDS: ZOFRAN ODT PO PRN ×2 (11:27→15:08)
[2016-12-22] MEDS: LOVENOX SUB-Q SCH (11:27)
[2016-12-22] MEDS: NORVASC PO SCH (15:04)
[2016-12-22] MEDS: LYRICA PO SCH (15:04)
[2016-12-22] MEDS: PERCOCET 5/325 PO PRN (21:50)
[2016-12-22] MEDS: XANAX PO SCH (21:51)
[2016-12-23 08:02] VITALS: BP 163/65
--- NOTE | 2016-12-23 08:12 | Discharge Summary ---
Providers - Providers Date of Admission: 12/19/16 12:35 Date of discharge: 12/23/16 Attending physician: LOGAN AGUIAR 12/21/16 07:27 Physical Therapy Evaluation and Treat [CONS] Routine Comment: Reason For Exam: gen weakness Primary care physician: ACUTE CARE SURGEON Hospitalization Condition: Good Disposition: DISCHARGED TO HOME OR SELFCARE - Discharge Diagnoses (1) UTI (urinary tract infection) Status: Acute Qualifiers: Urinary tract infection type: U Hematuria presence: H Indwelling urinary catheter type: I Encounter type: E (2) Hyponatremia Status: Acute (3) Fever Status: Acute Qualifiers: Fever type: F Encounter type: E (4) HTN (hypertension), benign Status: Acute (5) Peripheral neuropathy Status: Chronic Qualifiers: Peripheral neuropathy type: P (6) Spinal stenosis Status: Chronic Qualifiers: Spinal region: S Exam - Constitutional Vitals: Temp Pulse Resp BP Pulse Ox 99.0 F 56 L 20 163/65 96 12/23/16 08:02 12/23/16 08:02 12/23/16 08:02 12/23/16 08:02 12/23/16 08:02 Plan Activity: advance as tolerated Diet: low fat, low cholesterol Additional Instructions: 1.Follow up [facility] PCP, Dr. Saldivar in 1 week Follow up with: PRIMARY CARE, [Primary Care Provider] - 3-5 Days Prescriptions: Ciprofloxacin HCl [Ciprofloxacin TAB] 500 mg PO BID #14 tablet
--- NOTE | 2016-12-23 08:12 | Progress Note ---
Hospitalist Physical - Constitutional Vitals: Temp Pulse Resp BP Pulse Ox 99.0 F 56 L 20 163/65 96 12/23/16 08:02 12/23/16 08:02 12/23/16 08:02 12/23/16 08:02 12/23/16 08:02 Results - Labs CBC & Chem 7: 12/20/16 04:50 12/22/16 05:07 Labs: Laboratory Last Values WBC 5.0 K/mm3 (4.5-11.0) 12/20/16 04:50 RBC 4.05 M/mm3 (3.65-5.03) 12/20/16 04:50 Hgb 12.1 gm/dl (11.8-15.2) 12/20/16 04:50 Hct 34.8 % (35.5-45.6) L 12/20/16 04:50 MCV 86 fl (84-94) 12/20/16 04:50 MCH 30 pg (28-32) 12/20/16 04:50 MCHC 35 % (32-34) H 12/20/16 04:50 RDW 12.9 % (13.2-15.2) L 12/20/16 04:50 Plt Count 211 K/mm3 (140-440) 12/20/16 04:50 Lymph % (Auto) 31.2 % (13.4-35.0) 12/20/16 04:50 Ness % (Auto) 8.7 % (0.0-7.3) H 12/20/16 04:50 Eos % (Auto) 3.4 % (0.0-4.3) 12/20/16 04:50 Baso % (Auto) 0.8 % (0.0-1.8) 12/20/16 04:50 Lymph # 1.6 K/mm3 (1.2-5.4) 12/20/16 04:50 Ness # 0.4 K/mm3 (0.0-0.8) 12/20/16 04:50 Eos # 0.2 K/mm3 (0.0-0.4) 12/20/16 04:50 Baso # 0.0 K/mm3 (0.0-0.1) 12/20/16 04:50 Seg Neutrophils % 55.9 % (40.0-70.0) 12/20/16 04:50 Seg Neutrophils # 2.8 K/mm3 (1.8-7.7) 12/20/16 04:50 PT 13.6 Sec. (12.2-14.9) 12/19/16 10:10 INR 1.05 (0.87-1.13) 12/19/16 10:10 APTT 39.0 Sec. (24.2-36.6) H 12/19/16 10:10 Sodium 139 mmol/L (137-145) D 12/22/16 05:07 Potassium 3.8 mmol/L (3.6-5.0) 12/22/16 05:07 Chloride 102.6 mmol/L (98-107) 12/22/16 05:07 Carbon Dioxide 22 mmol/L (22-30) 12/22/16 05:07 Anion Gap 18 mmol/L 12/22/16 05:07 BUN 5 mg/dL (9-20) L 12/22/16 05:07 Creatinine 0.8 mg/dL (0.8-1.5) D 12/22/16 05:07 Estimated GFR > 60 ml/min 12/22/16 05:07 BUN/Creatinine Ratio 6.25 % 12/22/16 05:07 Glucose 105 mg/dL (75-100) H 12/22/16 05:07 Osmolality 236 Mosm/kg 12/19/16 10:12 Lactic Acid 0.6 mmol/L (0.7-2.0) L 12/19/16 10:32 Calcium 7.8 mg/dL (8.4-10.2) L 12/22/16 05:07 Phosphorus 2.4 mg/dL (2.5-4.5) L 12/21/16 05:03 Magnesium 1.9 mg/dL (1.7-2.3) 12/21/16 05:03 Total Bilirubin 0.3 mg/dL (0.1-1.2) 12/20/16 04:50 Direct Bilirubin < 0.2 mg/dL (0-0.2) 12/19/16 10:10 AST 22 units/L (5-40) 12/20/16 04:50 ALT 12 units/L (7-56) 12/20/16 04:50 Alkaline Phosphatase 59 units/L (35-129) 12/20/16 04:50 Ammonia 50.0 umol/L (25-60) 12/19/16 10:32 Total Creatine Kinase 176 units/L (55-170) H 12/19/16 10:10 CK-MB (CK-2) 2.8 ng/mL (0.0-4.0) 12/19/16 10:10 CK-MB (CK-2) Rel Index 1.5 (0-4) 12/19/16 10:10 Troponin T < 0.010 ng/mL (0.00-0.029) 12/19/16 10:10 NT-Pro-B Natriuret Pep 1403 pg/mL (0-900) H 12/19/16 10:10 Total Protein 5.3 g/dL (6.3-8.2) L 12/20/16 04:50 Albumin 3.1 g/dL (3.9-5) L 12/20/16 04:50 Albumin/Globulin Ratio 1.4 % 12/20/16 04:50 Urine Color Yellow (Yellow) 12/22/16 08:50 Urine Turbidity Cloudy (Clear) 12/22/16 08:50 Urine pH 5.0 (5.0-7.0) 12/22/16 08:50 Ur Specific [place] 1.011 (1.003-1.030) 12/22/16 08:50 Urine Protein 100 mg/dl mg/dL (Negative) 12/22/16 08:50 Urine Glucose (UA) Neg mg/dL (Negative) 12/22/16 08:50 Urine Ketones Neg mg/dL (Negative) 12/22/16 08:50 Urine Blood Lg (Negative) 12/22/16 08:50 Urine Nitrite Pos (Negative) 12/22/16 08:50 Urine Bilirubin Neg (Negative) 12/22/16 08:50 Urine Ictotest Not Reportable 12/22/16 08:50 Urine Urobilinogen < 2.0 mg/dL (<2.0) 12/22/16 08:50 Ur Leukocyte Esterase Lg (Negative) 12/22/16 08:50 Urine WBC (Auto) > 182.0 /HPF (0.0-6.0) H 12/22/16 08:50 Urine RBC (Auto) > 182.0 /HPF (0.0-6.0) 12/22/16 08:50 Urine Bacteria (Auto) 1+ /HPF (Negative) 12/22/16 08:50 Urine WBC Clumps 3+ /HPF 12/22/16 08:50
[2016-12-23] MEDS: LEVAQUIN 500MG/100ML 500 MG/100 ML BAG IV SCH (09:11)
[2016-12-23] MEDS: LYRICA PO SCH (09:12)
[2016-12-23] MEDS: NORVASC PO SCH (09:12)
[2016-12-23] MEDS: LOVENOX SUB-Q SCH (09:12)
[2016-12-23] MEDS: MIRALAX 3350 PO SCH (09:17)
--- NOTE | 2016-12-28 08:22 | Query- Present on Admission ---
Dear Date:_12/28/16 Process Control Programmer/CDS:Kaden Richardson Phone#:_[phone] Exercise your independent professional judgment when responding to this query. Questions asked do not imply a particular answer is desired or expected. We greatly appreciate your clarification on this issue. Clinical Documentation States: 81 Y/O M admitted on 12/19 Patient states that he has felt very weak since his prior hospitalization. He was discharged on December 09 following treatment for fecal retention. He has opiate-induced constipation. He is on chronic opiates for spinal stenosis. He states he's felt weak since discharge. His last sodium was 133. He went to see his doctor Yariel who draw labs yesterday. The patient was called to come to the emergency department for a sodium of 114. Clinical Findings Show: Urine WBC >182 on 12/22 Based on the above clinical scenario and your knowledge of the patient's case please clarify if the diagnosis stated below was present on admission: Diagnosis: Urinary Tract Infection Present on admission : [ ] Yes (Y) [ ] Clinically undeterminable(W) [ ] No (N) Please also document response in your Progress Notes and/or Discharge Summary and indicate if the condition was present on admission. KARAN
== END 2016-12-23 11:58 | disposition home health service (06) | DRG 641 ==
LOC: ED 09:06 → 3A 12:35
PROVIDERS: ADMIT Internal Medicine; ATTEND Internal Medicine
DX: E87.1 Hypo-osmolality and hyponatremia (principal); N39.0 Urinary tract infection, site not specified; M48.00 Spinal stenosis, site unspecified; G62.9 Polyneuropathy, unspecified; R00.1 Bradycardia, unspecified; I10 Essential (primary) hypertension; E78.00 Pure hypercholesterolemia, unspecified; F17.200 Nicotine dependence, unspecified, uncomplicated; T47.4X5A Adverse effect of other laxatives, initial encounter; T47.3X5A Adverse effect of saline and osmotic laxatives, initial encounter; Y92.9 Unspecified place or not applicable
CPT/HCPCS: 36415; 71010; 80048; 80051; 80053; 80074; 81001; 82140; 82550; 82553; 83735; 83880; 83930; 84100; 84484; 85025; 85610; 85730; 87040; 87086; 93005; 93010; 96360; 96361; A9270-GY; G8978-GP; G8979-GP; G8980-GP; J1650; J1956; J7030; J7040; Q0162